=== PATIENT | female | born 1965 | race Caucasian/White ===

== ENCOUNTER 2020-03-19 06:53 | Outpatient (NON) | payer BC, SELFPAY ==
[2020-03-19 16:42] LABS: SARS-CoV-2 RNA PCR Negative
== END 2020-03-19 06:54 ==
PROVIDERS: PCP Nurse Practitioner Adult Health; Visit Provider Nurse Practitioner Adult Health
DX: R05 Cough (principal); Z20.828 Contact with and (suspected) exposure to other viral communicable diseases
CPT/HCPCS: 87635; C9803; U0003

== ENCOUNTER 2020-04-11 11:54 | Outpatient (NON) | payer BC, SELFPAY ==
[2020-04-11 22:32] LABS: SARS-CoV-2 RNA PCR Negative
== END 2020-04-11 11:55 ==
LOC: ANHCOVIDDT 11:55
PROVIDERS: PCP Nurse Practitioner Adult Health; Visit Provider Nurse Practitioner Adult Health
DX: Z20.828 Contact with and (suspected) exposure to other viral communicable diseases (principal); R05 Cough
CPT/HCPCS: 87635; C9803; U0003

== ENCOUNTER → 2020-08-24 06:53 | Outpatient (CLI) | payer BC, SELFPAY ==
[2020-08-24 19:12] LABS: SARS-CoV-2 RNA PCR Negative
== END ==
PROVIDERS: PCP Nurse Practitioner Adult Health; Visit Provider Nurse Practitioner Adult Health
DX: Z20.822 Contact with and (suspected) exposure to COVID-19 (principal); R09.81 Nasal congestion
CPT/HCPCS: C9803; U0003; U0005

== ENCOUNTER 2020-12-03 08:53 | Outpatient (CLI) | payer BC, SELFPAY | END 2020-12-03 08:54 | disposition home or self-care (01) | LOC: ANHAUDIO 08:57 | PROVIDERS: PCP Nurse Practitioner Adult Health; Visit Provider Nurse Practitioner Adult Health | DX: H90.6 Mixed conductive and sensorineural hearing loss, bilateral (principal) | CPT/HCPCS: 92557; 92567 ==

== ENCOUNTER 2020-12-03 09:01 | Outpatient (RCR) | payer BC, SELFPAY | END 2020-12-03 23:59 | disposition home or self-care (01) | LOC: ANHAUDIO 09:01 | PROVIDERS: PCP Nurse Practitioner Adult Health; Visit Provider Nurse Practitioner Adult Health | DX: Z46.1 Encounter for fitting and adjustment of hearing aid (principal) | CPT/HCPCS: 99199 ==

== ENCOUNTER 2021-02-26 09:00 | Outpatient (RCR) | payer BC, SELFPAY ==
--- NOTE | 2021-01-17 09:40 | PTOPEVAL ---
INITIAL PHYSICAL THERAPY EVALUATION and PLAN OF CARE Thank you for referring Savanah Walker to [facility].? Savanah is scheduled to be seen for physical therapy? 1x/week for 6 weeks. Please review, sign, date and return this plan of care RAY. I agree with and certify that the following plan of care is medically necessary. Referring Physician Date Admitting Provider: Attending Provider: Lenin Porter NP Referring Provider: *PT Outpatient Evaluation Start: 01/17/21 08:18 Freq: Status: Active Protocol: Document 01/17/21 08:10 RAMILA (Rec: 01/17/21 09:38 RAMILA [id number]) Therapy Assessment Status Assessment Status Assessment Status Evaluation Outpatient Past Medical History Past Medical History Source of Past Medical History Patient Neurological History Hx Other Neurological Disorders Yes: neuropathy Cardiovascular History Hx Hypercholesterolemia Yes Hx Hypertension Yes Respiratory History Hx Sleep Apnea Yes: to obtain CPAP machine Hx Other Respiratory Disorders Yes: 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 Gastrointestinal History Hx Cholecystectomy Yes: 2020 Hx Gastroesophageal Reflux Disease Yes Hx Other Gastrointestinal Disorders Yes: liver stent following ron-stent has been removed, cyst draining where gall Genitourinary History Hx Other Genitourinary Disorders Yes: urinary incontinence Musculoskeletal History Hx Arthritis Yes Hx Degenerative Disk Disease Yes: bulging discs Endocrine History Hx Diabetes Yes HEENT History Hx Meniere's Syndrome Yes Hx Other HEENT Disorders Yes: hearing loss, vertigo Reproductive History Hx Post Menopausal Yes Psychosocial History Hx Anxiety Yes Hx Depression Yes Pain History Has Past Pain Affected Your Daily Life Yes Evaluation Information Problem Diagnosis increased frequency of urination Onset 2003 - worsening since then Subjective Information Savanah reports that in 2003 she Query Text:As Reported By Patient/ purchased a trampoline for Family her children - would go on it - would have some urinary leakage. Since then the urinary leakage has worsened - within last 8 months began to wake up with urinary leakage that she wasn't aware of. Also has had increase in diarrhea x 7 years - has had diagnostic work up - unable to
--- NOTE | 2021-02-26 09:48 | PTOPEVAL ---
PHYSICAL THERAPY DISCHARGE SUMMARY Thank you for referring Savanah Walker to [facility] [place]Note 2[place]? Savanah has been seen x 6 visits in PT. She has met most goals set. She is to continue with her HEP for continual strengthening of her pelvic floor musculature. I agree with Savanah's discharge from PT. Referring Physician Date Admitting Provider: Attending Provider: Lenin Porter NP Referring Provider: Therapy Assessment Status Assessment Status Assessment Status Discharge Evaluation Information Problem Diagnosis increased frequency of urination Subjective Information Savanah reports that she doesn't Query Text:As Reported By Patient/ leak at night and that she is Family only getting up 1x/night for urination. Using 30% less with pads. She reports being able to perform urge strategies effectively. She will still have some leakage with cough and/or sneeze. Pain Assessment Timing of Pain Assessment Timing of Pain Assessment Assessment Self Report Self Report Pain Level 0 Pelvic Health Evaluation Pelvic Floor Assessment Sustained Levator Ani Strength 3+/5 able to perform 10 ct hold Quick Levator Ani Contraction in 15 10 Seconds Pelvic Health Therapy Pelvic Health Exercise Isolated Levator Ani Contraction sitting - 10 ct hold/10 ct Query Text:Position, Hold/Relaxation relax - 5 reps Time, Repetitions Quick Contractions sit - 10 in 15 sec, stand 10 Query Text:Position, Repetitions in 15 sec Therapeutic Ball no [place] islander ball today due to Query Text:Movement Direction, vertigo Repetitions Elevator Techniques sitting-4steps up 5 ct hold, 3 Query Text:Repetitions, Number of steps down, variable 5 reps Steps Going Up, Number of Steps Going ea Down Resistive 'Shh' Technique slow, soft x 5 reps, quick, Query Text:Quick, Hard, Long, Soft, hard x 5 reps Number of Repetitions Exercise Limitations Muscle Weakness Response to Exercise Increased Strength Endurance Good Exercise Comments upgraded to resistive exercises Rehab Teaching Rehab Teaching Teaching Topic Rehab Teaching Topic Components Exercise,Home Program As Pertains To Technique Recipient Patient Learning Preferences Audio,Demonstration,Discussion ,One-on-One Instruction,Visual ,Written Barriers to Learning None Readiness to Learn
== END 2021-02-26 15:41 | disposition home or self-care (01) ==
LOC: ANHPT 09:00
PROVIDERS: PCP Nurse Practitioner Adult Health
DX: R35.0 Frequency of micturition (principal)
CPT/HCPCS: 97110; 97162

== ENCOUNTER 2021-03-08 09:13 | Outpatient (RCR) | payer BC, SELFPAY | END 2021-03-08 23:59 | disposition home or self-care (01) | LOC: ANHAUDIO 09:13 | PROVIDERS: PCP Nurse Practitioner Adult Health; Visit Provider Nurse Practitioner Adult Health | DX: Z46.1 Encounter for fitting and adjustment of hearing aid (principal) | CPT/HCPCS: V5160; V5261; V5264 ==

== ENCOUNTER 2021-09-18 08:10 | Outpatient (RCR) | payer BC, SELFPAY | END 2021-09-18 23:59 | disposition home or self-care (01) | LOC: ANHAUDIO 08:10 | PROVIDERS: PCP Nurse Practitioner Adult Health; Referring Provider Nurse Practitioner Adult Health; Visit Provider Nurse Practitioner Adult Health | DX: Z46.1 Encounter for fitting and adjustment of hearing aid (principal) | CPT/HCPCS: 99199 ==

== ENCOUNTER 2022-10-20 07:30 | Outpatient (RCR) | payer BC, SELFPAY | END 2022-10-20 23:59 | disposition home or self-care (01) | LOC: ANHAUDIO 07:30 | PROVIDERS: PCP Nurse Practitioner Adult Health; Visit Provider Nurse Practitioner Adult Health | DX: Z46.1 Encounter for fitting and adjustment of hearing aid (principal) | CPT/HCPCS: 99199; V5264 ==

== ENCOUNTER 2023-10-15 13:00 | Outpatient (RCR) | payer BC, SELFPAY | END 2023-10-15 23:59 | disposition home or self-care (01) | LOC: ANHAUDIO 13:00 | PROVIDERS: PCP Nurse Practitioner Adult Health; Visit Provider Nurse Practitioner Family | DX: Z46.1 Encounter for fitting and adjustment of hearing aid (principal) | CPT/HCPCS: 92593; 99199 ==

== ENCOUNTER 2024-07-07 14:00 | Outpatient (RCR) | payer BC, SELFPAY | END 2024-07-07 23:59 | disposition home or self-care (01) | LOC: ANHAUDIO 14:00 | PROVIDERS: PCP Nurse Practitioner Adult Health; Visit Provider Nurse Practitioner Adult Health | DX: Z47.1 Aftercare following joint replacement surgery (principal) | CPT/HCPCS: 99199; V5264 ==

== ENCOUNTER 2024-09-08 12:53 | Outpatient (CLI) | payer BC, SELFPAY ==
--- NOTE | ~2024-09-08 | XR_ITS ---
Lumbosacral Spine: AP and lateral views Clinical History: Pain Findings: The normal lordotic curve is maintained. The vertebral bodies and posterior elements are i ntact. There is mild to moderate degenerative disc change throughout the lumbar spine. There is moder ate to advanced facet arthropathy, especially from L3 through S1. The sacroiliac joints are normally outlined. Impression: Moderate to advanced degenerative spondylosis, as above. Reviewed, dictated and finalized at location M. Impression: Moderate to advanced degenerative spondylosis, as above.
--- OUTSIDE RECORDS SUMMARY | 2024-09-08 12:59 | XMS_ITS | Clinical Summary ---
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
--- OUTSIDE RECORDS SUMMARY | 2024-09-08 12:59 | XMS_ITS | Encounter Summary ---
Author Organization [facility] Address [address] [place] [address] Care Team Providers Care Exchange Architect Name Role Phone Lorenza Thornton NP Primary Care Provider [phone] Palak Garber Primary Care Provider [phone] Encounter Details Date Type Department Care Team (Late st Contact Info) Description 10/31/2019 Hospital Follow-up Call [facility] [place] [address] Tessy Newsome RN Social History Tobacco Use Types Packs/Day Years Used Date Smoking Tobacco: Every Day Cigarettes 1.5 15 Smokeless Tobacco: Current Alcohol Use Standard Drinks/Week Comments Not Currently 0 (1 standard drink = 0.6 oz pur e alcohol) Humiliation, Afraid, Rape, and Kick questionnair e Answer Date Recorded Within the last year, have y ou been afraid of your partner or ex-partner? No 10/24/2019 Within the last year, have y ou been humiliated or emotionally abused in other ways by your partner or ex-partner? No Within the last year, have y ou been kicked, hit, slapped, or otherwise physically hurt by your partner or ex-partner? No 10/24/2019 Within the last year, have y ou been raped or forced to have any kind of sexual activity by your partner or ex-partner? No 10/24/2019 Social Connection and Isolat ion Panel [NHANES] Answer Date Recorded In a typical week, how many times do you talk on the phone with family, friends, or neighbors? More than three times a week 10/24/2019 How often do you get togethe r with friends or relatives? Once a week 10/24/2019 How often do you attend chur ch or moravian services? Never 10/24/2019 Do you belong to any clubs o r organizations such as presybeterian groups, unions, fraternal or athletic groups, or school groups? No 10/24/2019 How often do you attend meet ings of the clubs or organizations you belong to? Never 10/24/2019 Are you , , di vorced, , never , or living with a partner? 10/24/2019 Overall Financial Resource Strain (CARDIA) Answe r Date Recorded How hard is it for you to pa y for the very basics like food, housing, medical care, and heating? Not hard at all 10/24/2019 [facility] - Occupational Stress Questionnaire Answer Date Recorded Do you feel stress - tense, restless, nervous, or anxious, or unable to sleep at night because your mind is troubled all the time - these days? Rather much 10/24/2019 Exercise Vital Sign Answer Date Recorde d On average, how many days pe r week do you engage in moderate to strenuous exercise (like a brisk walk)? 0 days 10/24/2019 On average, how many minutes do you engage in exercise at this level? 0 min 10/24/2019 Hunger Vital Sign Answer Date Recorded Within the past 12 months, y ou worried that your food would run out before you got the money to buy more. Never true 10/24/19 20 Within the past 12 months, t he food you bought just didn't last and you didn't have money to get more. Never true 10/24/2019 PRAPARE - Transportation Answer Date Re corded In the past 12 months, has l ack of transportation kept you from medical appointments or from getting medications? No 09/26 In the past 12 months, has l ack of transportation kept you from meetings, work, or from getting things needed for daily living? No 10/24/2019 Comments No Sex and Gender Information Value Date Recorded Sex Assigned at Not on file Legal Sex Female 7:36 PM CDT Gender Identity Not on file Sexual Orientation Not on file COVID-19 Exposure Response Date Recorded In the last month, have you been in contact with someone who was confirmed or suspected to have Coronavirus / COVID-19? No / Unsure 11/03/2019 10:51 AM CDT documented as of this encounter Functional Status * Question Answer Date of Assessment Author Status Do you have serious difficulty walking or climbing stairs? No 11/03/2019 6:40 PM CDT Hiro Aleman RN Ac tive * Question Answer Date of Assessment Author Status Do you have difficulty dressing or bathing? No 11/03/2019 6:40 PM CDT Hiro Aleman R N Active Because of a physical, mental, or emotional condition, do you have difficulty doing errands alone such as visiting a doctor's office or shopping? No 11/03/2019 6:40 PM CDT Hiro Aleman RN [facility] * RETIRED Are you deaf or do you have serious difficulty hearing Answer Date of Assessment Author Status Yes 10/24/2019 9:55 PM CDT Activ e * RETIRED Are you blind or do you have serious difficulty seeing, even when wearing glasses? Answer Date of Assessment Author Status No 10/24/2019 9:55 PM CDT Activ e * Do you have serious difficulty walking or climbing stairs? Answer Date of Assessment Author Status No 10/24/2019 9:55 PM CDT Saritha Freed RN Active * Do you have difficulty dressing or bathing? Answer Date of Assessment Author Status No 10/24/2019 9:55 PM CDT Saritha Freed RN Active * Because of a physical, mental, or emotional condition, do you have difficulty doing errands alone such as visiting a doctor's office or shopping? Answer Date of Assessment Author Status No 10/24/2019 9:55 PM DERREKT Saritha Freed RN Active documented as of this encounter Mental Status * Question Answer Entry Date Author Status Because of a physical, mental, or emotional condition, do you have serious difficulty concentrating, remembering, or making decisions? No 11/03/2019 6:40 PM CDT Hiro Aleman R N Active * Because of a physical, mental, or emotional condition, do you have serious difficulty concentrating, remembering, or making decisions? Answer Entry Date Author Status No 10/24/2019 9:55 PM CDT Saritha Freed RN Active documented in this encounter Plan of Treatment Not on file documented as of this encounter Visit Diagnoses Not on filedocumented in this encounter Additional Health Concerns Infection Onset Date Last Indicated Resolved Time COVID-19 Rule Out 09/03/2020 09/03/2020 09/04/2020 3:23 PM CDT documented as of this encounter Care Teams Exchange Architect Relationship Specialty [place] [address] [place] [id number] PCP - General NURSE PRACTITIONER 10/25/19 08/23/22 Palak Garber PA [address] [place] [address] PCP - General PHYSICIAN ELECTRIC SWITCH REPAIRER 08/24/22 documented as of this encounter
--- OUTSIDE RECORDS SUMMARY | 2024-09-08 13:00 | XMS_ITS | Clinical Summary ---
Author Organization [facility] Address [address] [place] [address] Phone Care Team Providers Care Academic Records Specialist Name Role Phone Lorenza Thornton APRN Primary Care Provider [phone] Lenin Porter APRN, LABELING STRATEGIST Unavailable [phone] Allergies No known active allergies Medications traMADol (ULTRAM) 50 MG Tablet TAKE 2 TABLETS BY MOUTH IN THE MORNING AND 2 TABLETS IN THE EVENING 0 11/19/19 19 Active clonazePAM (KLONOPIN) 1 MG Tablet Take 1 mg by mouth 3 times daily. 2 11/09/19 19 Active guanFACINE (TENEX) 2 MG Tablet TAKE 2 TABLETS BY MOUTH ONCE DAILY 1 10/21/19 19 Active meclizine (ANTIVERT) 12.5 MG Tablet Take 12.5 mg by mouth daily. 2 tabs a day per pt's list Active omeprazole (PRILOSEC) 20 MG CAPSULE DELAYED RELEASE TAKE 1 CAPSULE BY MOUTH ONCE DAILY 3 11/09/19 19 Active Meloxicam 15 MG Tablet meloxicam 15 mg tablet TAKE 1 TABLET BY MOUTH ONCE DAILY 05/26/19 14 Active DULoxetine (CYMBALTA) [address] Particles TAKE 1 CAPSULE BY MOUTH ONCE DAILY 0 11/01/19 19 Active chlorthalidone (HYGROTON) 25 MG Tablet chlorthalidone 25 mg tablet TAKE 1 TABLET BY MOUTH ONCE DAILY 04/15/20 13 Active enalapril (VASOTEC) 10 MG Tablet enalapril maleate 10 mg tablet TAKE 1 TABLET BY MOUTH ONCE DAILY Active atorvastatin (LIPITOR) 40 MG Tablet TAKE 1 TABLET BY MOUTH ONCE DAILY 0 11/01/19 19 Active docusate sodium (DOK) 100 MG Capsule DOK 100 mg capsule TAKE 1 CAPSULE BY MOUTH TWICE DAILY Active traZODone (DESYREL) 150 MG Tablet Take 150 mg by mouth nightly. 2 tabs at hs per pt's paperwork Active metFORMIN (GLUCOPHAGE) 500 MG Tablet Take 500 mg by mouth 2 times daily. 1 tab in AM and 1 tab in PM per pt's list 3 10/27/19 19 Active methocarbamol (ROBAXIN) 750 MG Tablet Take 750 mg by mouth 4 times daily. 1 tab qid per pt's list Active ciprofloxacin-d examethasone (CIPRODEX) 0.3-0.1 % Suspension Place 4 Drops in affected ear(s) as needed. Active budesonide-form oterol fumarate (SYMBICORT) 160-4.5 MCG/ACT Aerosol Symbicort 160 mcg-4.5 mcg/actuation HFA aerosol inhaler INHALE 2 PUFFS BY MOUTH TWICE DAILY Active albuterol (PROAIR HFA) 108 (90 Base) MCG/ACT Aerosol Solution take 2 Puffs by inhalation every 4 hours as needed. Active Ascorbic Acid (VITAMIN C) 1000 MG Tablet Take by mouth. Active L-Lysine 1000 MG Tablet Take 1 Tab by mouth daily. Active Multiple Vitamins-Minera ls (MULTIVITAMIN PO) Take by mouth. Activ e PSYLLIUM HUSK PO Take 500 mg by mouth daily. Active ferrous sulfate 325 (65 Fe) MG TabletIndicatio ns:Iron deficiency Take 1 Tab by mouth daily. 30 Tab 3 12/15/19 19 Active Additional Information Patient not taking.Reported on 01/12/2019 raNITIdine (ZANTAC) 150 MG TabletIndicatio ns:Belching symptom Take 1 Tab by mouth 2 times daily. 180 Tab 01/13/20 19 Active Ascorbic Acid 100 MG Tablet Take 100 mg by mouth daily. Active atorvastatin (LIPITOR) 40 MG Tablet Take 40 mg by mouth. 10/15/19 20 Active Dapagliflozin Propanediol (Farxiga) 5 MG Tablet Farxiga 5 mg tablet Take 1 tablet every day by oral route. Active clonazePAM (KlonoPIN) 1 MG Tablet Take 1 mg by mouth. 10/28/19 20 Active diazePAM (VALIUM) 5 MG Tablet diazepam 5 mg tablet Active DULoxetine (CYMBALTA) [address] Particles Take 60 mg by mouth. 10/17/19 Active gabapentin (NEURONTIN) 300 MG Capsule gabapentin 300 mg capsule Active enalapril (VASOTEC) 10 MG Tablet Take 10 mg by mouth daily. 08/25/19 Active empagliflozin (Jardiance) 25 MG Tablet Take 25 mg by mouth daily. 09/03/19 Active metFORMIN (GLUCOPHAGE) 500 MG Tablet metformin 500 mg tablet Active multi-vitamins (Multi-Vitamin) Tablet Take 1 Tablet by mouth. Active omeprazole (PriLOSEC) 40 MG CAPSULE DELAYED RELEASE Take 40 mg by mouth. Active naloxone HCl (Narcan) 4 MG/0.1ML Liquid Narcan 4 mg/actuation nasal spray Active budesonide (ENTOCORT EC) [address] Particles Take 6 mg by mouth every morning. Active glimepiride (AMARYL) 2 MG Tablet Take 2 mg by mouth every morning. Active Vibegron (Gemtesa) 75 MG TabletIndicatio ns:Urinary frequency,Urina ry incontinence, urge,Urinary urgency Take 75 mg by mouth daily. 90 Tablet 3 06/21/19 Active Active Problems Problem Noted Date Diagnosed Date Iron deficiency 12/16/2018 Current smoker 11/22/2018 Chronic mastoiditis of left side 11/22/2018 Bandemia 11/22/2018 Chronic diarrhea 11/22/2018 Encounters Date Type Department Care Team Description 06/21/2024 2:15 PM SECONDARY SCHOOL TEACHER Office Visit [facility] [address] [place] [address] Lenin Porter, ELIZABETH, LABELING STRATEGIST Urinary frequency (Primary Dx); Urinary incontinence, urge; Urinary urgency Discharge Disposition: Discharged to home or Selfcare 06/19/2024 Travel from Last 3 Months Immunizations Immunization Administration Dates Next Due TDAP Vaccine 10/19/2017,04/27/2009 Td, Unspecified Formulation 01/28/2009 Family History Medical History Relation Name Comments Diabetes Father Hypertension Father Cancer Maternal Grandfather ? Cancer Maternal Grandmother ? Hypertension Mother Cancer Paternal Grandmother breast, something on stomach Relation Name Status Comments Father Alive Maternal Grandfather Maternal Grandmother Mother Alive Paternal Grandmother Social History Tobacco Use Types Packs/Day Years Used Date Smoking Tobacco: Every Day Cigarettes 0.5 35.8 Started: 11/22/1988 Smokeless Tobacco: Never Tobacco Cessation:Ready to Q uit: Not Asked; Counseling Given: Not Answered Alcohol Use Standard Drinks/Week Comments Never 0 (1 standard drink = 0.6 oz pure alcohol) has been years since she had a drink AUDIT-C Answer Date Recorded Frequency of Alcohol Consumption Never 11/22/2018 Average Number of Drinks Not on file 019 Frequency of Binge Drinking Not on file 10/26 Sexually Active Control Partners Comments Not Currently Comments No Sex and Gender Information Value Date Recorded Sex Assigned at Not on file Legal Sex Female 10:24 AM CDT Gender Identity Not on file Sexual Orientation Not on file Last Filed Vital Signs Vital Sign Reading Time Taken Comments Blood Pressure 151/96 06/21/2024 1:57 PM SECONDARY SCHOOL TEACHER Pulse 92 06/21/2024 1:57 PM SECONDARY SCHOOL TEACHER Temperature 36 C (96.8 F) 01/12/2019 12:24 PM CDT Respiratory Rate 18 06/21/2024 1:57 PM SECONDARY SCHOOL TEACHER Oxygen Saturation 96% 06/21/2024 1:57 PM SECONDARY SCHOOL TEACHER Inhaled Oxygen Concentration - - Weight 89.4 kg (197 lb) 06/21/2024 1:57 PM SECONDARY SCHOOL TEACHER Height 170.2 cm (5' 7 ) 06/21/2024 1:57 PM SECONDARY SCHOOL TEACHER Body Mass Index 30.85 06/21/2024 1:57 PM SECONDARY SCHOOL TEACHER Plan of Treatment Upcoming Encounters Date Type Department Care Team (Late st Contact Info) Description 06/27/2025 10:00 AM SECONDARY SCHOOL TEACHER Office Visit [facility] [address] [place] [phone] Lenin Porter, DIRECTOR SALES, LABELING STRATEGIST [address] [place] [address] Health Maintenance Due Date Last Done Comments Hepatitis C Virus (HCV) Screening 1965 Hepatitis B Immunization (1 of 3 - 19+ 3-dose series) 1984 Pneumococcal Immunization (50+ years) (1 of 2 - PCV) 1984 Pap Smear 1986 Cervical Cancer Screening (CCS) 08/25/1995 HPV/Cotest 08/25/1995 Mammogram 04/25/2014 04/25/2013 Cologuard 08/25/2015 Immunochemical Fecal Occult Blood 08/25/2015 Zoster Immunization (1 of 2) 08/25/2015 Influenza Immunization (#1) 2023 SARS-COV-2 Immunization ( season) 2023 09/10/2020, 08/20/2020 Td Immunization Every 10 Years (Adults With 1 Tdap) 10/20/2027 10/19/2017, 04/27/2009, 01/28/2009 Colonoscopy 09/03/2028 09/04/2023, 08/25, 07/17/2023, Additional history exists Colorectal Cancer Screening 09/03/2028 Respiratory Syncytial Virus (RSV) Immunization (Adult) (1 - 1-dose 75+ series) 2040 09/04/2023, 08/25, 07/17/2023, Additional history exists DTaP/Tdap/Td Immunization Discontinued 2017, 04/27/2009, 01/28/2009 TdaP Immunization Discontinued 10/19/2017, 04/27/2009 Meningococcal Immunization (ACWY) Aged Out No longer eligible based on patient's age to complete this topic Rotavirus Immunization Aged Out No lo nger eligible based on patient's age to complete this topic Procedures Procedure Name Priority Date/Time Associated Diagnosis Comments REAGAN,POST-VOID RES,US,NON-IMAGING Routine 06/21/2024 2:15 PM SECONDARY SCHOOL TEACHER Urinary frequency Urinary incontinence, urge POCT UA AUTOMATED W/O MICRO Routine 06/21/2024 2:05 PM SECONDARY SCHOOL TEACHER Urinary frequency Urinary incontinence, urge from Last 3 Months Results * REAGAN,POST-VOID RES,US,NON-IMAGING (06/21/2024 2:15 PM SECONDARY SCHOOL TEACHER) Narrative Ruth Otero - 06/21/2024 2:15 PM SECONDARY SCHOOL TEACHER Ruth Otero 06/21/2024 2:17 PM POCT Bladder Scan collected per standing order of James Porter on 06/21/2024 PVR= 0 ML us Lenin Porter APRN, CNP [place] - SURGERY Final Result * (ABNORMAL) POCT UA AUTOMATED W/O MICRO (06/21/2024 2:05 PM SECONDARY SCHOOL TEACHER) POC UA SPECIFIC GRAVITY 1.010 URINE PH 6.0 5.0 - 9.0 POC URINE LEUKOCYTES Negative Negative Joanne/uL POC URINE NITRITE Negative Negative POC URINE PROTEIN Negative Negative mg/dL POC URINE GLUCOSE >1000 mg/dL(A) Negative, Norm mg/dL POC URINE KETONE Negative Negative mg/dL POC URINE UROBILINOGEN Norm Norm, 0.2 E.U./dL (mg/dL), 1 E.U./dL (mg/dL) POC URINE BILIRUBIN Negative Negative mg/dL POC URINE BLOOD INSTRUMENT Negative Negative Ulcio/uL POC URINE COLOR Yellow POC URINE CLARITY Clear Urine 06/21/2024 2:05 PM SECONDARY SCHOOL TEACHER Lenin Porter APRN, CNP POINT OF CARE TESTING (MANUAL) Final Result from Last 3 Months Insurance [place]ID [place] [id number] Care Teams Academic Records Specialist Relationship Specialty Start Date End Date Lorenza Thornton APRN PCP - General Advanced Practice Nurse 11/18/18 Lenin Porter APRN, CNP [address] [place] [address] Nurse Practitioner Advanced Practice Nurse 02/16/23
--- OUTSIDE RECORDS SUMMARY | 2024-09-08 13:00 | XMS_ITS | Encounter Summary ---
Author Organization [facility] Address [address] [place] [id number] Care Team Providers Care Presser Automatic Name Role Phone Lorenza Thornton NP Primary Care Provider [phone] Palak Garber Primary Care Provider [phone] Encounter Details Date Type Department Care Team (Late st Contact Info) Description 11/09/2019 Hospital Follow-up Call [facility] Telemetry Unit [address] [place] [address] Alida Harper, RN Social History Tobacco Use Types Packs/Day [...] often do you attend chur ch or rastafarian services? Never 10/24/2019 Do you belong to any clubs o r organizations such as holiness groups, unions, fraternal or athletic groups, or [...] and heating? Not hard at all 10/24/2019 [facility] [place] of Occupat ional Health - Occupational Stress [...] as of this encounter Functional Status * RETIRED Are you deaf or do you have serious difficulty hearing Answer Date of Assessment Author Status No 11/03/2019 6:40 PM CDT Activ e * RETIRED Are you blind or do you have serious difficulty seeing, even when wearing glasses? Answer Date of Assessment Author Status No 11/03/2019 6:40 PM CDT Activ e * Do you have serious difficulty walking or climbing stairs? Answer Date of Assessment Author Status No 11/03/2019 6:40 PM CDT Hiro Aleman RN Active * Do you have difficulty dressing or bathing? Answer Date of Assessment Author Status No 11/03/2019 6:40 PM CDT Hiro Aleman RN Active * Because of a physical, mental, or emotional condition, do you have difficulty doing errands alone such as visiting a doctor's office or shopping? Answer Date of Assessment Author Status No 11/03/2019 6:40 PM CDT Hiro Aleman RN Active documented as of this encounter Mental Status * Because of a physical, mental, or emotional condition, do you have serious difficulty concentrating, remembering, or making decisions? Answer Entry Date Author Status No 11/03/2019 6:40 PM CDT Hiro Aleman RN Active documented in this encounter Plan of Treatment Not on file documented as of this encounter Visit Diagnoses Not on filedocumented in this encounter Additional Health Concerns Infection Onset Date Last Indicated Resolved Time COVID-19 Rule Out 09/03/2020 09/03/2020 09/04/2020 3:23 PM CDT documented as of this encounter Care Teams Presser Automatic Relationship Specialty Start Date End Date Lorenza Thornton NP [address] [place] [id number] PCP - General NURSE PRACTITIONER 10/25/19 08/23/22 Palak Garber PA [address] [place] [address] [place] [address] PCP - General PHYSICIAN GARAGE HAND 08/24/22 documented as of this encounter
--- OUTSIDE RECORDS SUMMARY | 2024-09-08 13:00 | XMS_ITS | Clinical Summary ---
Author Organization [facility] Address [facility] [place] [address] Care Team Providers Care Local Truck Driver Name Role Phone Palak Garber Primary Care Provider [phone] Allergies No known active allergies Medications albuterol sulfate HFA 108 (90 Base) MCG/ACT inhaler Inhale 2 puffs into the lungs every 4 (four) hours as needed for Shortness of breath. 0 Active SYMBICORT 160-4.5 MCG/ACT inhaler Inhale 2 puffs into the lungs 2 (two) times a day. 0 Active traZODone 150 MG tablet Take 150 mg by mouth nightly at bedtime. 0 Active atorvastatin 40 MG tablet Take 40 mg by mouth nightly at bedtime. 0 Active Ascorbic Acid (VITAMIN C) 100 MG tablet Take 100 mg by mouth daily. Active multi vitamin/mineral s tablet Take 1 tablet by mouth daily. Active clonazePAM 1 MG tablet Take 1 tablet (1 mg total) by mouth 3 (three) times daily as needed (Anxiety). 90 tablet 0 Active DULoxetine 60 MG capsule Take 1 capsule (60 mg total) by mouth daily. 30 capsule 1 0 Active omeprazole 20 MG capsule Take 20 mg by mouth daily. 1 Active enalapril 10 MG tablet Take 10 mg by mouth daily. 1 Active JARDIANCE 25 MG tablet Take 25 mg by mouth daily. 1 Active traMADol 50 MG tablet Take 50 mg by mouth 3 (three) times daily as needed. FOR PAIN 1 Active diphenoxylate-a tropine (LOMOTIL) 2.5-0.025 MG tabletIndicatio ns:Diarrhea Take 1 tablet by mouth 4 (four) times daily as needed for Diarrhea. 12 tablet 3 Active HYDROcodone-dyan taminophen (NORCO) 5-325 MG tabletIndicatio ns:Acute Pain < 3 Day Supply Take 1 tablet by mouth every 6 (six) hours as needed. Indications: Acute Pain < 3 Day Supply 10 tablet 3 Active hyoscyamine (LEVSIN) 0.125 MG tablet Take 1 tablet (0.125 mg total) by mouth every 6 (six) hours as needed for Cramping. 20 tablet 3 Active Active Problems Problem Noted Date Diagnosed Date Shortness of breath 09/03/2020 Abdominal pain 10/24/2019 History of cholecystectomy 10/24/2019 Iron deficiency 12/16/2018 Bandemia 11/22/2018 Chronic diarrhea 11/22/2018 Chronic mastoiditis of left side 11/22/2018 Current smoker 11/22/2018 Migraine equivalent 08/30/2018 Chronic otitis externa of both ears 10/25/2012 HTN (hypertension) 10/25/2012 Meniere's disease 10/25/2012 Superior semicircular canal dehiscence 3 Cold sore 05/05/2011 Anxiety 02/05/2011 Cervical pain (neck) 02/05/2011 Overview (10/24/2019): dx - cervical neck is straight Hot flashes 02/05/2011 Overview (10/24/2019): pt is on medication and it is helping Hyperlipidemia 02/05/2011 Resolved Problems Problem Noted Date Diagnosed Date Resolved Date Intra-abdominal abscess ([facility]) 11/03/2019 11/08/2019 Family History Medical History Relation Comments Heart Disease Father Heart Attack Mother Stroke Mother Relation Status Comments Father Mother Social History Tobacco Use Types Packs/Day Years Used Date Smoking Tobacco: Former Cigarettes 0.5 15 Passive Smoke Exposure: Never Smokeless Tobacco: Never Tobacco Cessation:Counseling Given: Not Answered Alcohol Use Standard Drinks/Week Comments Not Currently [...] often do you attend chur ch or confucianist services? Never 10/24/2019 Do you belong to any clubs o r organizations such as evangelical groups, unions, fraternal or athletic groups, or [...] and heating? Not hard at all 10/24/2019 [facility] [place] of Occupat ional Health - Occupational Stress [...] Sign Reading Time Taken Comments Blood Pressure 118/81 2022 4:39 PM CDT Pulse 72 2022 4:39 PM CDT Temperature 36.6 C (97.9 F) 2022 1:36 PM CDT Respiratory Rate 16 2022 4:39 PM CDT Oxygen Saturation 98% 2022 4:39 PM CDT Inhaled Oxygen Concentration - - Weight 88.3 kg (194 lb 10.7 oz) 2022 1:36 PM CDT Height 170.2 cm (5' 7 ) 2022 1:36 PM CDT Body Mass Index 30.49 2022 1:36 PM CDT Plan of Treatment Health Maintenance Due Date Last Done Comments Cervical Cancer Screening Pa p Smear (Age 30 to 64) Every 3 Years 1965 Colorectal Cancer Screening Colonoscopy (10 Years) 1965 Annual Physical 1968 Hepatitis C 08/25/1983 Hepatitis B Vaccines (1 of 3 - 19+ 3-dose series) 1984 Cervical Cancer Screening Pa p with HPV Testing (Age 30 to 64) Every 5 Years 08/25/1995 Cervical Cancer Screening wi th HPV 08/25/1995 Mammogram Screening 2005 Pneumococcal Vaccine: 50+ Years (1 of 1 - PCV) 08/25/2015 Zoster Vaccines (1 of 2) 08/25/2015 COVID-19 Vaccine (3 - 2023-2 5 season) 2023 09/10/2020, 08/20/2020 DTaP, Tdap and Td Vaccines ( 3 - Td or Tdap) 10/20/2027 10/19/2017, 04/27/2009, 01/28/2009 Meningococcal B Vaccine Aged Out No l onger eligible based on patient's age to complete this topic Meningococcal Vaccine Aged Out No italo elroy eligible based on patient's age to complete this topic RSV Immunizations Under 20 Months Aged Out No longer eligible b ased on patient's age to complete this topic Medical Devices Implanted Type Area Building Operator Device Identifier Shelf Expiration Date Model / Serial / Lot Advanix Biliary Implanted:Qty: 1 on 10/25/2019 by Adam Alexander MD at [facility] N/A: Bile Duct 05/09/2021 / REF [id number] / [id number] Insurance Advance Directives * Full Code (Latest Code Status on File) Date Activated Date Inactivated Comments 09/03/2020 3:26 PM 09/04/2020 2:11 PM * Full Code Date Activated Date Inactivated Comments 09/03/2020 2:53 PM 09/03/2020 3:26 PM * Full Code Date Activated Date Inactivated Comments 11/03/2019 5:51 PM 11/08/2019 2:20 PM * Full Code Date Activated Date Inactivated Comments 10/24/2019 8:42 PM 10/28/2019 5:06 PM Care Teams Local Truck Driver Relationship Specialty Start Date End Date Palak Garebr PA [address] [place] [id number] PCP - General PHYSICIAN TAPPER BALANCE WHEEL SCREW HOLE 08/24/22
--- OUTSIDE RECORDS SUMMARY | 2024-09-08 13:00 | XMS_ITS | Clinical Summary ---
Author Organization [facility] Address [address] [place] [address] Care Team Providers Care Apprentice Painter Neckties Name Role Phone Renard Hui MD Unavailable [phone] Conor Russo MD Unavailable [phone] Deana Garza RN Unavailable Unavailable Fela Gruber Primary Care Provider [phone] Source Comments [facility],non-owned Affiliates and Associated Physician Practices is amultiple site organization consisting of ambulatory clinics and hospital sitesin [place], [place], [place] and [place]. This disclosure is being madepursuant to the Care Everywhere program and may not contain all informatio navailable regarding this patient. Last updated 18.[facility] Allergies No known active allergies Medications * Be aware that medications may not be up to date on this document. Alwaysverify current medications with the patient. Multiple Vitamin (MULTI-VITAMIN) TABS Take 1 (one) tablet by mouth once daily Active clonazePAM (KLONOPIN) 0.5 MG tablet Take 2 (two) tablets by mouth 3 times daily Active ciprofloxacin-d examethasone (CIPRODEX) 0.3-0.1 % otic suspension 4 (four) drops 2 times daily Shake well before using. Active NEOMYCIN-POLYMY GATO-HC, OTIC, 1 % SOLN by Otic route. 4 drops in the right ear Active meclizine (ANTIVERT) 25 MG tabletIndicatio ns:BPPV (benign paroxysmal positional vertigo),Vertig o Take 1 Tab by mouth 3 times daily as needed for Dizziness. 30 Tab 0 06/09/19 13 Active traMADol (ULTRAM) 50 MG tabletIndicatio ns:Chronic neck pain Take 1-2 Tabs by mouth every 6 hours as needed. 120 Tab 0 04/11/20 13 Active albuterol HFA (VENTOLIN HFA) 108 (90 BASE) MCG/ACT inhaler Inhale 2 Puffs by mouth every 6 hours as needed. 1 Inhaler 5 05/05/19 15 Active budesonide-form oterol (SYMBICORT) 160-4.5 MCG/ACT inhaler Inhale 2 (two) puffs by mouth 2 times daily 10/04/19 20 Active DULoxetine (CYMBALTA) 60 MG capsule Take 1 (one) capsule by mouth once daily 10/17/19 20 Active enalapril (VASOTEC) 10 MG tablet once daily Active traZODone (DESYREL) 150 MG tablet Take 1 (one) tablet by mouth at bedtime 12/05/19 20 Active atorvastatin (LIPITOR) 40 MG tablet Take 1 (one) tablet by mouth at bedtime Active omeprazole (PriLOSEC) 20 MG capsule Take 1 (one) capsule by mouth daily before breakfast Active glimepiride (Amaryl) 2 MG tablet Take 1 (one) tablet by mouth daily with breakfast Active hyoscyamine (Levsin) 0.125 MG IR tablet Take 1 (one) tablet by mouth every 4 hours as needed for Spasms Active cyclobenzaprine (Flexeril) 10 MG tablet Take 1 (one) tablet by mouth 3 times daily as needed for Muscle Spasms Active Jardiance 25 MG tablet Take 1 (one) tablet by mouth once daily 02/09/20 23 Active Gemtesa 75 MG tablet Take 1 (one) tablet by mouth once daily 06/24/19 24 Active Trulicity 0.75 MG/0.5ML injection Inject 0.75 (three-quarters) mg subcutaneously every 7 days Active colestipol (Colestid) 1 GM tabletIndicatio ns:Diarrhea, unspecified type Take 1 (one) tablet by mouth once daily 90 tablet 12/07/19 24 Active ondansetron (Zofran) 4 MG tabletIndicatio ns:Nausea Take 1 (one) tablet by mouth every 6 hours as needed for Nausea/Vomiting 30 tablet 02/10/20 24 Active cholestyramine (Questran) 4 g packetIndicatio ns:Diarrhea, unspecified type Take 1 (one) packet by mouth once daily 60 Each 03/17/20 24 Active chlorthalidone (HYGROTON) 25 MG tabletIndicatio ns:HTN (hypertension) Take 1 Tab by mouth once daily. 90 Tab 0 04/15/20 13 020 Discontin ued(Exclu de AVS) Active Problems Problem Noted Date Diagnosed Date Abdominal bloating 02/11/2022 Irritable bowel syndrome with diarrhea 2 Abdominal pain 10/24/2019 Chronic diarrhea 11/22/2018 Migraine equivalent 08/30/2018 HTN (hypertension) 10/25/2012 Chronic otitis externa of both ears 10/25/2012 Superior semicircular canal dehiscence 3 Meniere's disease 10/25/2012 Cold sore 05/05/2011 Anxiety 02/05/2011 Cervical pain (neck) 02/05/2011 Overview (02/05/2011): dx - cervical neck is straight Hyperlipidemia 02/05/2011 Hot flashes 02/05/2011 Overview (02/05/2011): pt is on medication and it is helping Encounters Date Type Department Care Team Description 06/21/2024 8:00 AM CAMPUS SUPERVISOR Procedure visit [facility] - GI [address] [place] [address] Winston Marquis MD Nonalcoholic fatty liver disease 06/21/2024 Travel from Last 3 Months Immunizations Immunization Administration Dates Next Due TD VACCINE 01/28/2009 Family History Medical History Relation Name Comments Asthma Mother Heart Failure Mother Relation Name Status Comments Father Alive Mother Alive Social History Tobacco Use Types Packs/Day Years Used Date Smoking Tobacco: Former Cigarettes 0.5 25 1 7 - 2021 Passive Smoke Exposure: Never Smokeless Tobacco: Never Tobacco Cessation:Counseling Given: Not Answered Alcohol Use Standard Drinks/Week Comments No 0 (1 standard drink = 0.6 oz pur e alcohol) Comments No Sex and Gender Information Value Date Recorded Sex Assigned at Not on file Legal Sex Female 12:14 PM CAMPUS SUPERVISOR Gender Identity Not on file Sexual Orientation Not on file Last Filed Vital Signs Vital Sign Reading Time Taken Comments Blood Pressure 181/66 03/14/2024 9:23 AM CAMPUS SUPERVISOR Pulse 120 03/14/2024 9:23 AM CAMPUS SUPERVISOR Temperature 36.5 C (97.7 F) 09/07/2023 11:20 AM CDT Respiratory Rate 18 09/07/2023 11:20 AM CDT Oxygen Saturation 97% 03/14/2024 9:23 AM CAMPUS SUPERVISOR Inhaled Oxygen Concentration - - Weight 90.3 kg (199 lb) 03/14/2024 9:23 AM CAMPUS SUPERVISOR Height 170.2 cm (5' 7 ) 03/14/2024 9:23 AM CAMPUS SUPERVISOR Body Mass Index 31.17 03/14/2024 9:23 AM CAMPUS SUPERVISOR Plan of Treatment Health Maintenance Due Date Last Done Comments COLOGUARD (AGES 45-75) - COLON CA SCREENING 1965 CT COLONOGRAPHY - COLON CA SCREENING 1965 FIT - COLON CA SCREENING 1965 FLEX SIG - COLON CA SCREENING 1965 HIV SCREENING 1980 HEPATITIS C SCREENING 08/20/1983 HEPATITIS B VACCINE (1 of 3 - 19+ 3-dose series) 1984 PAP SMEAR 06/28/2013 06/28/2010, 06/28/2010 MAMMOGRAM 04/25/2015 04/25/2013, 11/08/2011, 05/31/2010, Additional history exists PNEUMOCOCCAL VACCINE 50+ (1 of 1 - PCV) 08/25/2015 ZOSTER VACCINE (1 of 2) 08/25/2015 DTAP/TDAP/TD VACCINES (2 - Td or Tdap) 01/28/2019 01/28/2009 COVID-19 VACCINE ( - season) 2023 09/10/2020, 08/20/2020 DEPRESSION SCREENING 04/27/2024 INFLUENZA VACCINE (Season Ended) 2024 SCREENING FOR DIABETES 09/03/2026 , 07/17/2023, 03/23/2023, Additional history exists COLON MONITORING 09/03/2033 09/04/2023, 01/2024, 07/17/2023, Additional history exists COLONOSCOPY - COLON CA SCREENING 09/03/2033 09/04/2023, 09/04/2023, 07/17/2023, Additional history exists Colorectal Cancer Screening 09/03/2033 HIB VACCINE Aged Out No longer eligi ble based on patient's age to complete this topic HPV VACCINE Aged Out No longer eligi ble based on patient's age to complete this topic MENINGOCOCCAL (Group B) VACCINE SHARED DECISION-MAKING Aged Out No longer eligible based on patient's age to complete this topic MENINGOCOCCAL GROUPS A/C/Y/W VACCINE Aged Out No longer eligible based on patient's age to complete this topic Goals Goal Patient Goal Type Associated Problems Recent Progress Patient-Stated? Author Medication Management General On track( 024 9:23 AM CAMPUS SUPERVISOR) Tiana Webster RN Note: Expected end date: ongoing Interventions: Take all medications as prescribed Let your doctor know right away about any changes in your medications Make sure to request a refill of your medication at least one week prior to your last dose Procedures Procedure Name Priority Date/Time Associated Diagnosis Comments NM LIVER ELASTOGRAPHY Routine 06/21/2024 8:14 AM CAMPUS SUPERVISOR Nonalcoholic fatty liver disease ENDOSCOPY, COLON, DIAGNOSTIC Routine 09/04/2023 7:47 AM CDT GLUCOSE - POINT OF CARE Routine 09/04/2023 7:38 AM CDT MAMMO BILAT SCREENING Routine 04/25/2013 8:18 AM CAMPUS SUPERVISOR Other screening mammogram from Last 3 Months or Most Recently Relevant to Health Maintenance Results * PROC FIBROSCAN (06/21/2024 8:14 AM CAMPUS SUPERVISOR) Narrative Winston Limon MD - 06/21/2024 8:14 AM CAMPUS SUPERVISOR Winston Limon MD 06/21/2024 4:47 PM Diagnosis: Fatty Liver RN verified patient NPO for prior 3 hours. Procedure explained. Date of Exam: 06/21/2024 Liver Stiffness: (LSM, kPa) median: 4.7 IQR/Median% (ideally < 30%): 16% CAP (controlled attenuation parameter): 355 Technical Difficulty: None Ordering Provider: Dr. Choi Fibroscan interpretation: I have personally reviewed the Fibroscan report and associated tracings. The calculated Liver Stiffness Measurement (LSM, kPa) indicates that: The probability of advanced liver fibrosis is: low. The loss of ultrasound signal, (controlled attenuation parameter, CAP [dB/m]), indicates that the probability of hepatic steatosis is: high. Winston Bustos MD The following criteria are used to indicate the probability of advanced (stage 3-4) fibrosis: < 7.0 kPa: low 7.0-8.9 kPa: low to moderate 9.0-14.9 kPa: moderate 15-20 kPa: high > 20 kPa: very high Liver stiffness > 12 kPa is associated with an increased risk of cirrhosis-related complications over the next 3-5 years (Lynnetteier, 2022). Liver stiffness > 20 kPa is also associated with a high probability of complications of portal hypertension including varices and ascites. Liver stiffness > 50 kPa is associated with a high risk of variceal bleeding. These interpretations are based on the following published data: Gordo J, Hagstr m H, Ekstiglesiat M, Monica C, Bonacooperi M, Cure S, Ampuero J, Nasr P, Tallab L, Canivet CM, Kechagias S, S nchez Y, Dincuff E, Tania A, Isaiah M, Rioken J, Trybrian A and Carlson-Dao M. Non-invasive tests accurately stratify patients with NAFLD based on their risk of liver-related events. J Hepatol (2021) 76: 2258-2738. Danielle PJ, Willy M, Gali M, et al. Accuracy of FibroScan controlled attenuation parameter and liver stiffness measurement in assessing steatosis and fibrosis in patients with nonalcoholic fatty liver disease. Gastroenterology 2019;156:4114-2857. Harrison MS, Nir R, Van Alirio ML, et al. Vibration-controlled transient elastography to assess fibrosis and steatosis in patients with nonalcoholic fatty liver disease. Clin Gastroenterol Hepatol 2019;17:156-163. Note that scores have been developed that incorporate the Fibroscan liver stiffness measurement from large cohorts of patients with liver biopsies to further refine the ability of Fibroscan to identify patients with MASH and advanced fibrosis. These include the FAST (Fibroscan-AST) score (Naz, 2021) and the Agile3+ and Agile4 scores (Pamela, 202; Meme, 202). Naz TA, Van Alirio ML, Efren M, Brad A, et al. Validation of the accuracy of the FAST score for detecting patients with at-risk nonalcoholic steatohepatitis (HORNER) in a [place] cohort and comparison to other non-invasive algorithms. PLoS ONE (2021) 17: h5657469. Pamela GIBBONS, Jazmin J, Jaqueline ZM, et al. Enhanced diagnosis of advanced fibrosis and cirrhosis in individuals with NAFLD using FibroScan-based Agile scores. J Hepatol (2022) 78: 247-259. Meme et al. Vibration-controlled transient elastography scores to predict liver-related events in steatotic liver disease. MARIA LUISA (2023) 331: 2801-9195 Fibroscan LSM can also be used with laboratory parameters without formulas to assess prognosis. According to the Baveno-VII criteria (De La Cruz, 2021), Fibroscan LSM <=15 kPa plus a platelet count of >=305g433/L rules out clinically significant portal hypertension (sensitivity and negative predictive value >90%) in patients with compensated advanced chronic liver disease. De La Cruz R, April J, Juan Manuel-Cee G, Reailyn T, Dev C on behalf of the Baveno VII Faculty. Baveno VII--Renewing consensus in portal hypertension. J Hepatol (2021) 76: 959-974 Assessing the likelihood of advanced fibrosis in patients with intermediate liver stiffness measurement (LSM) by Fibroscan (e.g., 8-15 kPa) can be improved by also calculating the FIB-4 score (Cici et al. Hepatology Communications 2019;3:0209-2207) or NAFLD Fibrosis score (Becker et al. Clinical Gastroenterology and Hepatology 2019;17:7653-5581 using routine clinical data. Notes: 1. Fibroscan cannot reliably identify earlier stages of fibrosis (ie distinguish F0 from F1 and F2) and thus a histologic stage cannot be predicted from the Fibroscan reading. 2. Liver stiffness can be increased by factors other than fibrosis including passive congestion, infiltrative processes, active alcoholism, recent moderate alcohol consumption in the 2 weeks before the exam, biliary obstruction and marked inflammation. The interpretation of the Fibroscan result provided above may not have taken such clinical factors into account. 3. Identifying steatosis by an elevated CAP score (> 250 db/m) is useful for establishing a diagnosis of steatotic liver disease. However the severity of steatosis does not correlate with liver related outcomes. Disease etiology also influences Fibroscan cutoff values for fibrosis stages and the following cutoffs have been proposed (Vladimir et al, Clin Gastro Hepatol 2015; 13:27-36): Cutoffs for Stage 3 and Stage 4 fibrosis respectively: Hepatitis B: >9 and >11.7 kPa Hepatitis C: >9.5 and >12.5 kPa HCV-HIV: >11 and >14 kPa Cholestatic liver diseases: >10 and >17.9 kPa MASLD/MASH: >10 and >14 kPa CAP estimates of steatosis: normal <200 dB/m mild 200 to 250 dB/m moderate 250-290 dB/m substantial > 290 dB/m (Note that Fibroscan is not a quantitative measure of liver fat.) These criteria are estimates and may change as additional supporting data becomes available. (This additional interpretive data was last updated 04/29/24.) [email or web address] Winston Limon MD PROCEDURE/ MINOR SURGICAL ORDERABLES Edited Result - Final * ENDOSCOPY, COLON, DIAGNOSTIC (09/04/2023 7:47 AM CDT) Report Endoscopy POC Endoscopy Department Report _ Patient Name: Savanah Walker Procedure Date: 09/04/2023 7:47 AM Date of : 1965 Classification: Outpatient Gender: Female Ethnicity: Not or Race: White _ Providers: Susan Kiran MD Referring MD: Melani Encinas MD (Referring MD) Procedure: Colonoscopy Indications: Microscopic colitis, dysplasia detected on random biopsy of the colon Medications: Monitored Anesthesia Care Patient Profile: This is a 58 year old female. Description of Procedure: After I obtained informed consent, the scope was passed under direct vision. Throughout the procedure, the patient's blood pressure, pulse, and oxygen saturations were monitored continuously. The [id number] was introduced through the anus and advanced to the cecum, identified by appendiceal orifice and ileocecal valve. The colonoscopy was performed without difficulty. The patient tolerated the procedure well. Scope insertion time was 6 minutes. Scope withdrawal time was 41 minutes. The quality of the bowel preparation was evaluated using the BBPS ([place] Bowel Preparation Scale). The total BBPS score equals 9. To enhance insepction, Endocuff distal attachment was used. RezeeGenius (resmio) was used to assist in polyp detection. Findings: The perianal and digital rectal examinations were normal. Staining chromoscopy with methylene blue was performed in the entire colon. Irrigation chromoendoscopy technique was used. A 3 mm polyp was found in the cecum. The polyp was sessile. The polyp was removed with a cold snare. Resection and retrieval were complete. Two flat and sessile polyps were found in the ascending colon. The polyps were 1 to 3 mm in size. These polyps were removed with a cold biopsy forceps. Resection and retrieval were complete. A 7 mm polyp was found in the transverse colon. The polyp was flat. The polyp was removed with a cold snare. Resection and retrieval were complete. A diffuse area of mildly congested and erythematous mucosa was found in the ascending colon and in the cecum. Biopsies for histology were taken with a cold forceps from the cecum, ascending colon, left colon, transverse colon and rectum for evaluation of microscopic colitis. Estimated Blood Loss: Estimated blood loss was minimal. Complications: No immediate complications. Impression: - Chromoscopy was performed in the entire colon. - One 3 mm polyp in the cecum, removed with a cold snare. Resected and retrieved. - Two 1 to 3 mm polyps in the ascending colon, removed with a cold biopsy forceps. Resected and retrieved. - One 7 mm polyp in the transverse colon, removed with a cold snare. Resected and retrieved. - Mildly congested and erythematous mucosa in the ascending colon and in the cecum. - Biopsies were taken with a cold forceps from the cecum, ascending colon, left colon, transverse colon and rectum for evaluation of microscopic colitis. Recommendation: - Patient has a contact number available for emergencies. The signs and symptoms of potential delayed complications were discussed with the patient. Return to normal activities tomorrow. Written discharge instructions were provided to the patient. - Resume previous diet. - Await pathology results. - Return to GI office. Attending Participation: I personally performed the entire procedure. Procedure Code(s): --- Professional --- 43043, Colonoscopy, flexible; with removal of tumor(s), polyp(s), or other lesion(s) by snare technique 11805, 59, Colonoscopy, flexible; with biopsy, single or multiple Diagnosis Code(s): --- Professional --- D12.2, Benign neoplasm of ascending colon D12.3, Benign neoplasm of transverse colon (hepatic flexure or splenic flexure) K63.89, Other specified diseases of intestine K52.839, Microscopic colitis, unspecified CPT copyright 2021 [employer]. All rights reserved. The codes documented in this report are preliminary and upon sales associate key holder review may be revised to meet current compliance requirements. Susan Kiran MD, 09/04/2023 9:13:12 AM This report has been signed electronically. Note Initiated On: 09/04/2023 7:47 AM Number of Addenda: [address] [address] [facility] 09/04/2023 7:47 AM CDT Susan Kiran MD GI PROCEDURE ORDERABLES Edited R esult - Final [facility] * (ABNORMAL) GLUCOSE - POINT OF CARE (09/04/2023 7:38 AM CDT) Glucose WB/POC 221(H) 70 - 115 mg/dL 09/04/2023 11:21 AM CDT [facility] Specimen Type Venous 09/04/2023 11:21 AM CDT [facility] Blood BLOOD SPECIMEN / Unknown 09/04/2023 7:38 AM CDT 09/04/2023 11:21 AM CDT Susan Kiran MD LAB - POINT OF CARE ORDERABLES F inal Result [facility] [address] [place] [address], [facility] [phone] * MAMMO SCREENING DIGITAL IMAGE BILAT G0202 (04/25/2013 8:18 AM CAMPUS SUPERVISOR) Anatomical Region Laterality Modality Breast Bilateral Mammography 04/25/2013 2:43 PM CAMPUS SUPERVISOR Narrative 04/25/2013 2:59 PM CAMPUS SUPERVISOR DATE: 04/25/2013 DIGITAL BILATERAL SCREENING MAMMOGRAMS WITH CAD PREVIOUS EXAM DATE: March 01, 2012 INDICATION: Screening. TECHNIQUE: Bilateral craniocaudad (CC) and mediolateral oblique (MLO) views. Images were interpreted with the aid of CAD. TECHNOLOGIST: RT John(R)(M) TISSUE DENSITY: Average FINDINGS: No significant new findings when compared to previous examination. ASSESSMENT: Negative, BI-RADS 1 RECOMMENDATIONS: Continue annual screening mammography in one year. The above findings should be correlated with physical examination. A relatively nonspecific study should not preclude additional evaluation if suspicious findings are present clinically. An [employer]. [facility] utilizes [employer] as a reminder system to notify patients of their next recommended mammograms. Edited by Melissa Mccormick on 04/25/2013 2:54 PM Procedure Note Tayler Ruiz MD - 04/25/2013 DATE: 04/25/2013 DIGITAL BILATERAL SCREENING MAMMOGRAMS WITH CAD PREVIOUS EXAM DATE: March 01, 2012 INDICATION: Screening. TECHNIQUE: Bilateral craniocaudad (CC) and mediolateral oblique (MLO) views. Images were interpreted with the aid of CAD. TECHNOLOGIST: RT John(R)(M) TISSUE DENSITY: Average FINDINGS: No significant new findings when compared to previous examination. ASSESSMENT: Negative, BI-RADS 1 RECOMMENDATIONS: Continue annual screening mammography in one year. The above findings should be correlated with physical examination. A relatively nonspecific study should not preclude additional evaluation if suspicious findings are present clinically. An [employer] [facility]. [facility] utilizes [employer] as a reminder system to notify patients of their next recommended mammograms. Edited by Melissa Mccormick on 04/25/2013 2:54 PM Alonso Núñez MD MAMMO ORDERABLES Final Result from Last 3 Months or Most Recently Relevant to Health Maintenance Insurance [facility] MEDICAID Care Teams Apprentice Painter Neckties Relationship Specialty Start Date End Date Fela Gruber [address] [place] [address] PCP - General 10/06/23 Renard Hui MD Otolaryngology 02/05/11 Conor Russo MD [address] [place] [address] Orthopedic Surgery 02/05/11 Deana Garza, landscape artist 08/05/12
--- OUTSIDE RECORDS SUMMARY | 2024-09-08 13:00 | XMS_ITS | Encounter Summary ---
Author Organization [facility] Address [address] [place] [address] Phone Care Team Providers Care Gas Turbine Powerplant Mechanic Helper Name Role Phone Lorenza Thornton APRN Primary Care Provider [phone] Lenin Porter APRN, RECRUITING ADMINISTRATOR Unavailable [phone] Reason for Visit * Reason Comments Medication Refill Encounter Details Date Type Department Care Team (Late st Contact Info) Description 06/08/2023 Refill [facility] [address] [place] [address] Lenin Porter APRN, RECRUITING ADMINISTRATOR [address] [place] [address] Medication Refill Social History Tobacco Use Types Packs/Day Years Used Date Smoking Tobacco: Every Day Cigarettes 0.5 35.8 Started: 11/22/1988 Smokeless Tobacco: Never Alcohol Use Standard Drinks/Week Comments Never 0 (1 standard drink = 0.6 oz pure alcohol) has been years since she had a drink AUDIT-C Answer Date Recorded Frequency of Alcohol Consumption Never 11/22/2018 Average Number of Drinks Not on file 019 Frequency of Binge Drinking Not on file 10/26 Comments No Sex and Gender Information Value Date Recorded Sex Assigned at Not on file Legal Sex Female 10:24 AM CDT Gender Identity Not on file Sexual Orientation Not on file documented as of this encounter Miscellaneous Notes * Telephone Encounter - Gertrudis Powell RN - 06/09/2023 8:50 AM CST Per nursing clinical judgement, provider to review and approve the medication(s) order(s) if appropriate. Requested Prescriptions Pending Prescriptions Disp Refills solifenacin (VESICARE) 10 MG Tablet [Pharmacy Med Name: Solifenacin Succinate 10 MG Oral Tablet] 90Tablet 0 Sig: Take 1 tablet by mouth once daily Urinary Anticholinergics Protocol Failed - 06/08/2023 6:25 PM Failed - GFR greater than or equal to 30 in past 12 months No results found for: GFRNA Passed - Visit with relevant provider in past 12 months or upcoming 90 days Recent Visits Date Type Provider Dept 03/24/23 Office Visit Lenin Porter APRN, CNP [facility] 02/16/23 Office Visit Lenin Porter APRN, CNP [facility] Showing recent visits within past 365 days and meeting all other requirements Future Appointments Date Type Provider Dept 06/23/23 Appointment Lenin Porter APRN, CNP [facility] Showing future appointments within next 90 days and meeting all other requirements LACTATION CONSULTANT documented in this encounter Plan of Treatment Upcoming Encounters Date Type Department Care Team (Late st Contact Info) Description 06/27/2025 10:00 AM RN LACTATION CONSULTANT Office Visit [facility] [address] [place] [address] Lenin Porter APRN, RECRUITING ADMINISTRATOR [address] [place] [address] documented as of this encounter Visit Diagnoses Diagnosis Urinary frequency Urinary urgency Urgency of urination Urinary incontinence, urge Urge incontinence documented in this encounter Care Teams Gas Turbine Powerplant Mechanic Helper Relationship Specialty Start Date End Date Lorenza Thornton APRN PCP - General Advanced Practice Nurse 11/18/18 Lenin Porter APRN, RECRUITING ADMINISTRATOR [address] [place] [address] Nurse Practitioner Advanced Practice Nurse 02/16/23 documented as of this encounter
[2024-09-08 19:43] LABS: Alanine Aminotransferase 36 U/L (6-35); Albumin Level 5.1 g/dL (3.5-5.1); Alkaline Phosphatase 110 U/L (38-126); Anion Gap 15 mmol/L (4-12); Aspartate Amino Transferase 61 U/L (14-36); Bilirubin,Total 0.8 mg/dL (0.2-1.3); Blood Urea Nitrogen 17 mg/dL (7-17); Calcium 9.5 mg/dL (8.4-10.2); Carbon Dioxide 21 mmol/L (22-30); Chloride 101 mmol/L (98-107); Cholesterol 203 mg/dL (0-200); Estimated Glomerular Filt Rate > 60; Glucose 170 mg/dL (65-110); HDL Direct 41 mg/dL; Potassium 3.5 mmol/L (3.4-5.0); Sodium 137 mmol/L (137-145); Triglycerides 437 mg/dL (<150)
[2024-09-08 19:54] LABS: LDL Cholesterol Direct 89 mg/dL
[2024-09-08 20:20] LABS: Microalbumin Urine Random 26.6 mg/L (0-16.7)
[2024-09-08 20:22] LABS: Creatinine Urine 44.4 mg/dL; MALB Creatinine Ratio 59.9 mg/g (0-30)
[2024-09-08 20:59] LABS: Free T4 Free Thyroxine 1.34 ng/dL (0.78-2.19)
[2024-09-08 22:33] LABS: Hemoglobin A1C 9.3 % (<5.7)
== END 2024-09-08 12:54 | disposition home or self-care (01) ==
LOC: ANHBWCLAB 12:56
PROVIDERS: PCP Nurse Practitioner Adult Health; Visit Provider Nurse Practitioner Adult Health
DX: R53.83 Other fatigue (principal); E11.9 Type 2 diabetes mellitus without complications; M54.9 Dorsalgia, unspecified
CPT/HCPCS: 36415; 72100; 80053; 80061; 82043; 82565; 82607; 83036; 84439; 84443

== ENCOUNTER 2024-10-09 07:32 | Outpatient (CLI) | payer BC, SELFPAY ==
--- NOTE | ~2024-10-09 | MR_ITS ---
MRI of the brain Clinical History: Dizziness and giddiness Technique: Axial and sagittal T1-weighted images were acquired. These were followed by axial T2-weigh sarah, diffusion weighted, gradient, and FLAIR images. Findings: No abnormal signal seen in the brain parenchyma. No acute infarct, intracranial hemorrhage, or mass lesion. Ventricles and subarachnoid spaces are unremarkable. Orbits are unremarkable. Paranasal sinuses and m astoid air cells are clear. Major intracranial flow voids are intact. Sagittal midline structures are intact. IMPRESSION: Normal exam. Reviewed, dictated and finalized at location M. IMPRESSION: Normal exam.
--- OUTSIDE RECORDS SUMMARY | 2024-10-09 07:37 | XMS_ITS | CONTINUITY OF CARE DOCUMENT ---
Author Name garrett tucker Address Unknown Organization [facility] Address [address] [place] [address] Phone [phone] Care Team Providers Care Shell Sieve Operator Name Role Phone Marilin Duffy MD Unavailable Marilin Duffy MD Unavailable AGNIESZKA CORCORAN Unavailable [phone] INSURANCE PROVIDERS Payer name Policy type / Coverage type Adis red alliance party ID [facility] [id number]
--- OUTSIDE RECORDS SUMMARY | 2024-10-09 07:37 | XMS_ITS | Clinical Summary ---
Author Organization [facility] Address [address] [place] [address] Phone Care Team Providers Care Aerodynamics Professor Name Role Phone Lorenza Thornton APRN Primary Care Provider [phone] Lenin Porter APRN, GREASE MAKER Unavailable [phone] Allergies No known active allergies Medications traMADol [...] Particles Take 60 mg by mouth. 10/17/19 20 Active gabapentin (NEURONTIN) 300 MG Capsule gabapentin 300 mg capsule Active enalapril (VASOTEC) 10 MG Tablet Take 10 mg by mouth daily. 08/25/19 Active empagliflozin (Jardiance) 25 MG Tablet Take 25 mg by mouth daily. 09/03/19 21 Active metFORMIN (GLUCOPHAGE) 500 MG Tablet metformin [...] by mouth daily. 90 Tablet 3 06/21/19 25 Active Active Problems Problem Noted Date Diagnosed Date Iron deficiency 12/16/2018 Current smoker 11/22/2018 Chronic mastoiditis of left side 11/22/2018 Bandemia 11/22/2018 Chronic diarrhea 11/22/2018 Immunizations Immunization Administration Dates Next Due TDAP [...] Date Smoking Tobacco: Every Day Cigarettes 0.5 35.9 Started: 11/22/1988 Smokeless Tobacco: Never Tobacco Cessation:Ready [...] Comments Blood Pressure 151/96 06/21/2024 1:57 PM INTERMODAL CUSTOMER SERVICE Pulse 92 06/21/2024 1:57 PM INTERMODAL CUSTOMER SERVICE Temperature 36 C (96.8 F) 01/12/2019 12:24 PM CDT Respiratory Rate 18 06/21/2024 1:57 PM INTERMODAL CUSTOMER SERVICE Oxygen Saturation 96% 06/21/2024 1:57 PM INTERMODAL CUSTOMER SERVICE Inhaled Oxygen Concentration - - Weight 89.4 kg (197 lb) 06/21/2024 1:57 PM INTERMODAL CUSTOMER SERVICE Height 170.2 cm (5' 7) 06/21/2024 1:57 PM INTERMODAL CUSTOMER SERVICE Body Mass Index 30.85 06/21/2024 1:57 PM INTERMODAL CUSTOMER SERVICE Plan of Treatment Upcoming Encounters Date Type Department Care Team (Late st Contact Info) Description 06/27/2025 10:00 AM INTERMODAL CUSTOMER SERVICE Office Visit [facility] [address] [place] [address] Lenin Porter, MACHINE HEEL SEAT FITTER, GREASE MAKER [address] [place] [address] Health Maintenance Due Date Last Done Comments Hepatitis C Virus (HCV) Screening 1965 Hepatitis B Immunization (1 of 3 - 19+ 3-dose series) 1984 Pneumococcal Immunization (50+ years) (1 of 2 - PCV) 1984 Pap Smear 1986 Cervical Cancer Screening (CCS) 08/25/1995 HPV/Cotest 08/25/1995 Cologuard 2010 Immunochemical Fecal Occult Blood 2010 Mammogram 04/25/2014 04/25/2013 Zoster Immunization (1 of 2) 08/25/2015 SARS-COV-2 Immunization (3 - season) 2023 09/10/2020, 08/20/2020 Influenza Immunization (Season Ended) 2024 Td Immunization Every 10 Years (Adults With 1 Tdap) 10/20/2027 10/19/2017, 04/27/2009, 01/28/2009 Colonoscopy 09/03/2028 09/04/2023, 08/25, 07/17/2023, Additional history exists Colorectal Cancer Screening 09/03/2028 Respiratory Syncytial Virus (RSV) Immunization (Adult) (1 - 1-dose 75+ series) 2040 DTaP/Tdap/Td Immunization Discontinued 2017, 04/27/2009, 01/28/2009 TdaP Immunization Discontinued 10/19/2017, 04/27/2009 Human Papillomavirus (HPV) Immunization Aged Out No longer eligible based on patient's age to complete this topic Meningococcal Immunization (ACWY) Aged Out No longer eligible based on patient's age to complete this topic Rotavirus Immunization Aged Out No lo nger eligible based on patient's age to complete this topic Insurance [place]ID [place] [id number] Care Teams Aerodynamics Professor Relationship Specialty Start Date End Date Lorenza Thornton APRN PCP - General Advanced Practice Nurse 11/18/18 Lenin Porter APRN, GREASE MAKER [address] [place] [address] Nurse Practitioner Advanced Practice Nurse 02/16/23
--- OUTSIDE RECORDS SUMMARY | 2024-10-09 07:37 | XMS_ITS | Encounter Summary ---
Author Organization [facility] Address [address] [place] [address] Phone Care Team Providers Care Fruit Tester Name Role Phone Lorenza Thortnon APRN Primary Care Provider [phone] Lenin Porter APRN, GUIDE ESCORT Unavailable Reason for Visit * Reason Comments Medication Refill Encounter Details Date Type Department Care Team (Late st Contact Info) Description 06/08/2023 Refill [facility] [address] [place] [address] Lenin Porter APRN, GUIDE ESCORT [address] [place] [address] Medication Refill Social History Tobacco Use Types Packs/Day Years Used Date Smoking Tobacco: Every Day Cigarettes 0.5 35.9 Started: 11/22/1988 Smokeless Tobacco: Never Alcohol Use [...] 02/16/23 Office Visit Lenin Porter APRN, CNP [facility] Showing recent visits within past 365 days and meeting all other requirements Future Appointments Date Type Provider Dept 06/23/23 Appointment Lenin Porter APRN, CNP [facility] Showing future appointments within next 90 days and meeting all other requirements GER STRATEGIC MARKETING documented in this encounter Plan of Treatment Upcoming Encounters Date Type Department Care Team (Late st Contact Info) Description 06/27/2025 10:00 AM MANAGER STRATEGIC MARKETING Office Visit [facility] [address] [place] [address] Lenin Porter APRN, GUIDE ESCORT [address] [place] [address] documented as of this encounter Visit Diagnoses Diagnosis Urinary frequency Urinary urgency Urgency of urination Urinary incontinence, urge Urge incontinence documented in this encounter Care Teams Fruit Tester Relationship Specialty Start Date End Date Lorenza Thornton APRN PCP - General Advanced Practice Nurse 11/18/18 Lenin Porter APRN, GUIDE ESCORT [address] [place] [address] Nurse Practitioner Advanced Practice Nurse 02/16/23 documented as of this encounter
== END 2024-10-09 07:33 | disposition home or self-care (01) ==
PROVIDERS: PCP Nurse Practitioner Adult Health; Visit Provider Nurse Practitioner Adult Health
DX: R42 Dizziness and giddiness (principal); H53.9 Unspecified visual disturbance
CPT/HCPCS: 70551

== ENCOUNTER 2025-02-07 10:06 | Outpatient (CLI) | payer OTHER, SELFPAY ==
--- OUTSIDE RECORDS SUMMARY | 2025-02-07 11:38 | XMS_ITS | Clinical Summary ---
Author Organization [facility] Address [address] [place] [address] Phone Care Team Providers Care Executive Candidate Developer Name Role Phone Unavailable Primary Care Provider Unavailabl e Social History Tobacco Use Types Packs/Day Years Used Date Smoking Tobacco: Never Assessed Comments Unknown Sex and Gender Information Value Date Recorded Sex Assigned at Not on file Legal Sex Female 10:07 AM PIANO MOVER Gender Identity Not on file Sexual Orientation [...] (1 of 2) 08/25/2015 INFLUENZA VACCINE (#1) 2024
--- OUTSIDE RECORDS SUMMARY | 2025-02-07 11:39 | XMS_ITS | Encounter Summary ---
Author Organization [facility] Address [address] [place] [address] Phone Care Team Providers Care Records Supervisor Name Role Phone Lorenza Thornton APRN Primary Care Provider [phone] Lenin Porter APRN, HOTEL ASSISTANT MANAGER Unavailable [phone] Reason for Visit * Reason Comments Medication Refill Encounter Details Date Type Department Care Team (Late st Contact Info) Description 06/08/2023 Refill [facility] [address] [place] [address] Lenin Porter APRN, HOTEL ASSISTANT MANAGER [address] [place] [address] Medication Refill Social History Tobacco Use Types Packs/Day Years Used Date Smoking Tobacco: Every Day Cigarettes 0.5 36.2 Started: 11/22/1988 Smokeless Tobacco: Never Alcohol Use [...] 02/16/23 Office Visit Lenin Porter APRN, CNP [facility] Showing recent visits within past 365 days and meeting all other requirements Future Appointments Date Type Provider Dept 06/23/23 Appointment Lenin Porter APRN, CNP [facility] Showing future appointments within next 90 days and meeting all other requirements C FANS MECHANIC documented in this encounter Plan of Treatment Upcoming Encounters Date Type Department Care Team (Late st Contact Info) Description 06/27/2025 10:00 AM ATTIC FANS MECHANIC Office Visit [facility] [address] [place] [address] Lenin Porter APRN, HOTEL ASSISTANT MANAGER [address] [place] [address] documented as of this encounter Visit Diagnoses Diagnosis Urinary frequency Urinary urgency Urgency of urination Urinary incontinence, urge Urge incontinence documented in this encounter Care Teams Records Supervisor Relationship Specialty Start Date End Date Lorenza Thornton APRN PCP - General Advanced Practice Nurse 11/18/18 Lenin Porter APRN, HOTEL ASSISTANT MANAGER [address] [place] [address] Nurse Practitioner Advanced Practice Nurse 02/16/23 documented as of this encounter
--- OUTSIDE RECORDS SUMMARY | 2025-02-07 11:39 | XMS_ITS | Clinical Summary ---
Author Organization [facility] Address [address] [place] [address] Phone Care Team Providers Care Financial Controller Name Role Phone Lorenza Thornton APRN Primary Care Provider [phone] Lenin Porter APRN, MANAGER CONTROL Unavailable [phone] Allergies No known active allergies Medications traMADol [...] 0.5 36.2 Started: 11/22/1988 Smokeless Tobacco: Never Tobacco Cessation:Ready [...] Comments Blood Pressure 151/96 06/21/2024 1:57 PM RODEO PERFORMER Pulse 92 06/21/2024 1:57 PM RODEO PERFORMER Temperature 36 C (96.8 F) 01/12/2019 12:24 PM CDT Respiratory Rate 18 06/21/2024 1:57 PM RODEO PERFORMER Oxygen Saturation 96% 06/21/2024 1:57 PM RODEO PERFORMER Inhaled Oxygen Concentration - - Weight 89.4 kg (197 lb) 06/21/2024 1:57 PM RODEO PERFORMER Height 170.2 cm (5' 7) 06/21/2024 1:57 PM RODEO PERFORMER Body Mass Index 30.85 06/21/2024 1:57 PM RODEO PERFORMER Plan of Treatment Upcoming Encounters Date Type Department Care Team (Late st Contact Info) Description 06/27/2025 10:00 AM RODEO PERFORMER Office Visit [facility] [address] [place] [address] Lenin Porter, CITY ROUTE DRIVER, MANAGER CONTROL [address] [place] [address] Health Maintenance Due Date Last Done Comments Hepatitis C Virus (HCV) Screening 1965 Hepatitis B Immunization (1 of 3 - 19+ 3-dose series) 1984 Pneumococcal Immunization (50+ years) (1 of 2 - PCV) 1984 Pap Smear 1986 Cervical Cancer Screening (CCS) 08/25/1995 HPV/Cotest 08/25/1995 Cologuard 2010 Immunochemical Fecal Occult Blood 2010 Mammogram 04/25/2014 04/25/2013 Zoster Immunization (1 of 2) 08/25/2015 Influenza Immunization (#1) 2024 SARS-COV-2 Immunization ( - season) 2024 09/10/2020, 08/20/2020 Td Immunization Every 10 Years [...] this topic Insurance MEDICAID BLUE [place] Care Teams Financial Controller Relationship Specialty Start Date End Date Lorenza Thornton APRN PCP - General Advanced Practice Nurse 11/18/18 Lenin Porter APRN, MANAGER CONTROL [address] [place] [address] Nurse Practitioner Advanced Practice Nurse 02/16/23
--- OUTSIDE RECORDS SUMMARY | 2025-02-07 11:39 | XMS_ITS | Clinical Summary ---
Author Organization [facility] Address [address] [place] [address] Care Team Providers Care Clerical Aide Name Role Phone Renard Hui MD Unavailable [phone] Conor Russo MD Unavailable [phone] Deana Garza RN Unavailable Unavailable Flea Gruber Primary Care Provider [phone] Source Comments [facility],non-owned Affiliates and Associated Physician Practices is amultiple site organization consisting of ambulatory clinics and hospital sitesin [place], [place], [place] and [place]. This disclosure is being madepursuant to the Care Everywhere program and may not contain all information available regarding this patient. Last updated 18.[facility] Allergies No known active allergies Medications * Be aware that medications may not be up to date on this document. Alwaysverify current medications with the patient. Multiple Vitamin (MULTI-VITAMIN ) TABS Take 1 (one) tablet by mouth once daily Active clonazePAM (KLONOPIN) 0.5 MG tablet Take 2 (two) tablets by mouth 3 times daily Active ciprofloxacin- dexamethasone (CIPRODEX) 0.3-0.1 % otic suspension 4 (four) drops 2 times daily Shake well before using. Active meclizine (ANTIVERT) 25 MG tabletIndicati ons:BPPV (benign paroxysmal positional vertigo),Verti go Take 1 Tab by mouth 3 times daily as needed for Dizziness. 30 Tab 0 3 Active Additional Information Patient taking differently:25 mg Oral 3 TIMES DAILY PRN, Dizziness,2 tablets in am, Reported on 12/12/2024 traMADol (ULTRAM) 50 MG tabletIndicati ons:Chronic neck pain Take 1-2 Tabs by mouth every 6 hours as needed. 120 Tab 0 3 Active albuterol HFA (VENTOLIN HFA) 108 (90 BASE) MCG/ACT inhaler Inhale 2 Puffs by mouth every 6 hours as needed. 1 Inhaler 5 5 Active budesonide-for moterol (SYMBICORT) 160-4.5 MCG/ACT inhaler Inhale 2 (two) puffs by mouth 2 times daily 0 Active DULoxetine (CYMBALTA) 60 MG capsule Take 1 (one) capsule by mouth once daily 0 Active enalapril (VASOTEC) 10 MG tablet once daily Active traZODone (DESYREL) 150 MG tablet Take 1 (one) tablet by mouth at bedtime 0 Active atorvastatin (LIPITOR) 40 MG tablet Take [...] 4 hours as needed for Spasms Active cyclobenzaprin e (Flexeril) 10 MG tablet Take 1 (one) tablet by mouth 3 times daily as needed for Muscle Spasms Active Jardiance 25 MG tablet Take 1 (one) tablet by mouth once daily 3 Active Gemtesa 75 MG tablet Take 1 (one) tablet by mouth once daily 4 Active OneTouch Verio test strip 1 (one) strip as directed 5 Active Lancets (ONETOUCH DELICA PLUS 33G EXTRA FINE LANCET) 5 Active mometasone (Elocon) 0.1 % cream Apply to affected area once daily Active valACYclovir (Valtrex) 1 GM tablet Take 0.5 (one-half) tablet by mouth once daily as needed Active Lysine 1000 MG Take 1 tablet by mouth once daily Active Ascorbic Acid (VITAMIN C PO) Take 1 tablet by mouth once daily Active ondansetron (Zofran) 4 MG tabletIndicati ons:Nausea Take 1 (one) tablet by mouth every 6 hours as needed for Nausea/Vomiting 30 tablet 5 Active chlorthalidone (HYGROTON) 25 MG tabletIndicati ons:HTN (hypertension) Take 1 Tab by mouth once daily. 90 Tab 0 3 12/12/19 20 Discontin ued(Exclu de AVS) Active Problems Problem [...] Encounters Date Type Department Care Team Description 12/12/2024 10:30 AM CDT Office Visit [facility] - GI [address] [place] [phone] Marlene Das, HOME SUPERVISOR-FERNANDEZ Irritable bowel syndrome with diarrhea (Primary Dx); Diarrhea, unspecified type; Abdominal pain, unspecified abdominal location; Nausea; Controlled type 2 diabetes mellitus without complication, unspecified whether mcfp insulin use (HCC) 12/12/2024 Travel 11/15/2024 Telephone [facility] [address] [place] [phone] Hamzah Chi RN Results 11/08/2024 3:29 PM CDT - 11/08/2024 11:59 PM CDT Hospital Encounter [facility] [address] [place] [address] Lorenza Thornton APRN-CNP Discharge Disposition: Home or Self Care from Last 3 Months Immunizations Immunization Administration Dates Next Due TD VACCINE 01/28/2009 Family History Medical History Relation Name Comments Asthma Mother Heart Failure Mother Relation Name Status Comments Father Alive Mother Alive Social History Tobacco Use Types Packs/Day Years Used Date Smoking Tobacco: Former Cigarettes 0.5 25 1 2021 Passive Smoke Exposure: Never Smokeless Tobacco: Never Tobacco Cessation:Counseling Given: Not Answered Alcohol Use Standard Drinks/Week Comments No 0 (1 standard drink = 0.6 oz pur e alcohol) Comments No Sex and Gender Information Value Date Recorded Sex Assigned at Not on file Legal Sex Female 12:14 PM MEDICARE NURSE Gender Identity Not on file Sexual Orientation Not on file Last Filed Vital Signs Vital Sign Reading Time Taken Comments Blood Pressure 124/92 12/12/2024 11:27 AM CDT pt remains asymptomatic Pulse 104 12/12/2024 10:30 AM CDT Temperature 36.5 C (97.7 F) 09/07/2023 11:20 AM CDT Respiratory Rate 18 09/07/2023 11:2 0 AM CDT Oxygen Saturation 100% 12/12/2024 10: 30 AM CDT Inhaled Oxygen Concentration - - Weight 84.2 kg (185 lb 9.6 oz) 12/12/2024 10:30 AM CDT Height 170.2 cm (5' 7) 12/12/2024 10:3 0 AM CDT Body Mass Index 29.07 12/12/2024 10:30 AM CDT Plan of Treatment Upcoming Encounters Date Type Department Care Team (Late st Contact Info) Description 06/14/2025 10:30 AM MEDICARE NURSE Office Visit [facility] - GI [address] [facility] [place] [address] Marlene Das APRN-CNP [address] [place] [id number] Health Maintenance Due Date Last Done Comments COLOGUARD (AGES 45-75) - COLON CA SCREENING 1965 CT COLONOGRAPHY - COLON CA SCREENING 1965 FIT - COLON CA SCREENING 1965 FLEX SIG - COLON CA SCREENING 1965 HIV SCREENING 1980 HEPATITIS C SCREENING 08/20/1983 HEPATITIS B VACCINE (1 of 3 - 19+ 3-dose series) 1984 PNEUMOCOCCAL VACCINE 50+ (1 of 2 - PCV) 1984 PAP SMEAR 06/28/2013 06/28/2010, 06/28/2010 MAMMOGRAM 04/25/2015 04/25/2013, 11/0 08/2011, 05/31/2010, Additional history exists ZOSTER VACCINE (1 of 2) 08/25/2015 DTAP/TDAP/TD VACCINES (2 - Td or Tdap) 01/28/2019 01/28/2009 DEPRESSION SCREENING 04/27/2024 COVID-19 VACCINE (3 - season) 2024 09/10/2020, 08/20/2020 INFLUENZA VACCINE (#1) 2024 SCREENING FOR DIABETES 09/03/2026 , 07/17/2023, [...] Patient-Stated? Author Medication Management General On track( 025 10:23 AM CDT) Tiana Wesbter, RN Note: Expected end date: ongoing Interventions: Take all medications as prescribed Let your doctor know right away about any changes in your medications Make sure to request a refill of your medication at least one week prior to your last dose Procedures Procedure Name Priority Date/Time Associated Diagnosis Comments PANCREATIC ELASTASE FECES Routine 11/08/2024 3:30 PM CDT Diarrhea, unspecified type E COLI SHIGA-LIKE TOXIN Routine 11/08/2024 3:30 PM CDT Noninfectious gastroenteritis, unspecified type CULTURE STOOL PANEL Routine 11/08/2024 3 :30 PM CDT Noninfectious gastroenteritis, unspecified type CULTURE STOOL+ECOLI SHIGA-LIKE TOXIN (BEAKER) Routine 11/08/2024 3:30 PM CDT Noninfectious gastroenteritis, unspecified type C DIFFICILE GDH AG + TOXIN A+B Routine 11/08/2024 3:30 PM CDT Diarrhea, unspecified type ENDOSCOPY, COLON, DIAGNOSTIC Routine 09/04/2023 7:47 AM CDT GLUCOSE - POINT OF CARE Routine 09/04/2023 7:38 AM CDT MAMMO BILAT SCREENING Routine 04/25/2013 8:18 AM MEDICARE NURSE Other screening mammogram from Last 3 Months or Most Recently Relevant to Health Maintenance Results * C DIFFICILE GDH AG + TOXIN A+B (11/08/2024 3:30 PM CDT) C difficile GDH antigen & toxin A/B NEGATIVE NEGATIVE 11/09/2024 7:32 AM CDT [facility] Stool STOOL SPECIMEN / Unknown Collection / Unknown 11/08/2024 3:30 PM CDT 11/08/2024 4:35 PM CDT Narrative [facility] - 11/09/2024 7:32 AM CDT Negative for toxigenic C. difficile Marlene Das HOME SUPERVISOR-MOLASSES PREPARER LAB - MICROBIOLO GY ORDERABLES Final Result Performing Organization Address City/[facility]/ZIP Co de Phone Number [facility] [address] [place], [place] [address], [facility] [phone] * (ABNORMAL) PANCREATIC ELASTASE FECES (11/08/2024 3:30 PM CDT) Pancreatic Elastase Feces 14(L) >=100 ug/g 11/12/2024 2:27 PM CDT [facility] ([facility]) Comment: The specimen submitted indicated possible watery diarrhea. Because watery stool is inherently dilute, low test results should be interpreted with caution. Retesting on formed stool is recommended. REFERENCE INTERVAL: Pancreatic Elastase Fecal by Immunoassay Less than 100 ug/g............Severe insufficiency 100 - 199 ug/g................Moderate insufficiency 200 ug/g or greater...........Normal INTERPRETIVE INFORMATION: Pancreatic Elastase Fecal by Immunoassay Reference intervals do not apply for infants less than one month old. Performed By: [facility] [address] [place] [address] Branch Lead: Refugio Sheth MD, PhD CLIA Number: [id number] Stool STOOL SPECIMEN / Unknown Collection / Unknown 11/08/2024 3:30 PM CDT 11/08/2024 4:35 PM CDT Marlene Das [facility] - BODY FLUID ORDERABLES Final Result Performing Organization Address [facility] Co de Phone Number [employer] ([facility]) [address] [place], [place] [id number] [place] [address] * E COLI SHIGA-LIKE TOXIN (11/08/2024 3:30 PM CDT) Shiga Toxin Negative for E. coli Shiga-like toxin. Negative 11/10/2024 12:32 PM CDT [facility] Stool STOOL SPECIMEN / Unknown Collection / Unknown 11/08/2024 3:30 PM CDT 11/08/2024 4:35 PM CDT Lorenza Thornton [facility] - MICROBIOLOGY ORDER RAJIV Final Result Performing Organization Address City/[facility]/ZIP Co de Phone Number [facility] [address] [place] [address], [facility] [phone] * CULTURE STOOL PANEL (11/08/2024 3:30 PM CDT) Culture No growth Salmonella, Shigella, Campylobacter, Escherichia coli O157:h7 or Yersinia JANETH 11/11/2024 9:03 AM CDT [facility] Stool STOOL SPECIMEN / Unknown Collection / Unknown 11/08/2024 3:30 PM CDT 11/08/2024 4:35 PM CDT Lorenza Thornton [facility] - MICROBIOLOGY ORDER RAJIV Final Result Performing Organization Address [facility] de Phone Number [facility] [address] [place] [address], [facility] [phone] * ENDOSCOPY, COLON, DIAGNOSTIC (09/04/2023 7:47 AM [...] and oxygen saturations were monitored continuously. The [id number] was introduced through the anus and advanced to the cecum, identified by appendiceal orifice and ileocecal valve. The colonoscopy was performed without difficulty. The patient tolerated the procedure well. Scope insertion time was 6 minutes. Scope withdrawal time was 41 minutes. The quality of the bowel preparation was evaluated using the BBPS (Uneeda Bowel Preparation Scale). The total BBPS score equals 9. To enhance insepction, Endocuff distal attachment was used. [employer] ([employer]) was used to assist in polyp detection. [...] entire procedure. Procedure Code(s): --- Professional --- 52825, Colonoscopy, flexible; with removal of tumor(s), polyp(s), or other lesion(s) by snare technique 61666, 59, Colonoscopy, flexible; with biopsy, single or multiple Diagnosis Code(s): --- Professional --- D12.2, Benign neoplasm of ascending colon D12.3, Benign neoplasm of transverse colon (hepatic flexure or splenic flexure) K63.89, Other specified diseases of intestine K52.839, Microscopic colitis, unspecified CPT copyright 2021 [employer]. All rights reserved. The codes documented in this report are preliminary and upon breading machine tender review may be revised to meet current compliance requirements. Susan Kiran MD, 09/04/2023 9:13:12 AM This report has been signed electronically. Note Initiated On: 09/04/2023 7:47 AM Number of Addenda: [address] [address] [facility] 09/04/2023 7:47 AM CDT Susan Kiran MD GI PROCEDURE ORDERABLES Edited R esult - Final [facility] * (ABNORMAL) GLUCOSE - POINT OF CARE (09/04/2023 7:38 AM CDT) Glucose WB/POC 221(H) 70 - 115 mg/dL 09/04/2023 11:21 AM CDT [facility] Specimen Type Venous 09/04/2023 11:21 AM CDT [facility] Blood BLOOD SPECIMEN / Unknown 09/04/2023 7:38 AM CDT 09/04/2023 11:21 AM CDT Susan Kiran MD LAB - POINT OF CARE ORDERABLES F inal Result [place] [address] [place] [address], [facility] [phone] * MAMMO SCREENING DIGITAL IMAGE BILAT [id number] (04/25/2013 8:18 AM MEDICARE NURSE) Anatomical Region Laterality Modality Breast Bilateral Mammography 04/25/2013 2:43 PM MEDICARE NURSE Narrative 04/25/2013 2:59 PM MEDICARE NURSE DATE: 04/25/2013 DIGITAL BILATERAL SCREENING MAMMOGRAMS WITH [...] if suspicious findings are present clinically. An [employer]. [facility] utilizes [employer] as a reminder system to notify patients [...] if suspicious findings are present clinically. An [employer] Facility. [facility] utilizes [employer] as a reminder system to notify patients of their next recommended mammograms. Edited by Melissa Mccormick on 04/25/2013 2:54 PM Alonso Núñez MD MAMMO ORDERABLES Final Result from Last 3 Months or Most Recently Relevant to Health Maintenance Insurance [facility] Care Teams Clerical Aide Relationship Specialty Start Date End Date Yasmani Fela [address] [place] [address] PCP - General 10/06/23 Renard Hui MD Otolaryngology 02/05/11 Conor Russo MD [address] [facility] [facility] [address] [place] [address] Orthopedic Surgery 02/05/11 Deana Garza, grey goods tester 08/05/12
--- OUTSIDE RECORDS SUMMARY | 2025-02-07 11:39 | XMS_ITS | Encounter Summary ---
Author Organization [facility] Address [address] [place] [address] Care Team Providers Care Under Presser Name Role Phone Lorenza Thornton NP Primary Care Provider [phone] Palak Garber Primary Care Provider [phone] Encounter Details Date Type Department Care Team (Late st Contact Info) Description 10/31/2019 Hospital Follow-up Call [facility] [place] [address] Tessy Newsome RN Social History Tobacco Use [...] or ex-partner? No 10/24/2019 Social Connection and Isolation Panel Answer Date Recorded In a typical week, how many times do you talk on the phone with family, friends, or neighbors? More than three times a week 10/24/2019 How often do you get togethe r with friends or relatives? Once a week 10/24/2019 How often do you attend chur ch or congregational services? Never 10/24/2019 Do you belong to any clubs o r organizations such as islam groups, unions, fraternal or athletic groups, or [...] heating? Not hard at all 10/24/2019 [facility] [place] of Occupat ional Health - Occupational Stress [...] Status No 10/24/2019 9:55 PM CDT Saritha Fered RN Active * Because of a physical, mental, or emotional condition, do you have difficulty doing errands alone such as visiting a doctor's office or shopping? Answer Date of Assessment Author Status No 10/24/2019 9:55 PM CDT Saritha Freed RN Active documented as of [...] documented as of this encounter Care Teams Under Presser Relationship Specialty Start Date End Date Lorenza Thornton NP [address] [place] [address] PCP - General NURSE PRACTITIONER 10/25/19 08/23/22 Palak Garber PA [address] [place] [address] PCP - General PHYSICIAN INDUSTRIAL ANALYST 08/24/22 documented as of this encounter
--- OUTSIDE RECORDS SUMMARY | 2025-02-07 11:39 | XMS_ITS | Encounter Summary ---
Author Organization [facility] Address [address] [place] [address] Care Team Providers Care Independent Distributor Name Role Phone Lorenza Thornton NP Primary Care Provider [phone] Palak Garber Primary Care Provider [phone] Encounter Details Date Type Department Care Team (Late st Contact Info) Description 11/09/2019 Hospital Follow-up Call [facility] Telemetry Unit B [address] [place] [address] Alida Harper, RN Social History Tobacco Use [...] often do you attend chur ch or sabianist services? Never 10/24/2019 Do you belong to any clubs o r organizations such as taoism groups, unions, fraternal or athletic groups, or [...] and heating? Not hard at all 10/24/2019 [facility] [place] of Occupat ional Health - Occupational Stress [...] documented as of this encounter Care Teams Independent Distributor Relationship Specialty Start Date End Date Lorenza Thornton NP [address] [place] [address] PCP - General NURSE PRACTITIONER 10/25/19 08/23/22 Palak Garber PA [address] [place], [place] [address] [address] PCP - General PHYSICIAN HEAD WAITRESS 08/24/22 documented as of this encounter
--- OUTSIDE RECORDS SUMMARY | 2025-02-07 11:39 | XMS_ITS | Clinical Summary ---
Author Organization [facility] Address [facility] [place] [address] Care Team Providers Care Gasoline Truck Crane Operator Name Role Phone Palak Garber Primary Care Provider [phone] Allergies No known active allergies Medications albuterol [...] Date Diagnosed Date Resolved Date Intra-abdominal abscess 11/03/201910/25 Family History Medical History Relation Comments Heart [...] 10/24/2019 How often do you attend chur or scientologist services? Never 10/24/2019 Do you belong to any clubs o r organizations such as restorationism groups, unions, fraternal or athletic groups, or [...] and heating? Not hard at all 10/24/2019 [facility] [place] of Occupat ional Health - Occupational Stress [...] 1:36 PM CDT Height 170.2 cm (5' 7) 2022 1:36 PM CDT Body Mass Index 30.49 2022 1:36 PM CDT Plan of Treatment Health Maintenance Due Date Last Done Comments Cervical Cancer Screening Pa p Smear (Age 30 to 64) Every 3 Years 1965 Colorectal Cancer Screening Colonoscopy (10 Years) 1965 Annual Physical 1968 Hepatitis C 08/25/1983 Cervical Cancer Screening Pa p with HPV Testing (Age 30 to 64) Every 5 Years 08/25/1995 Cervical Cancer Screening wi th HPV 08/25/1995 Mammogram Screening 2005 Pneumococcal Vaccine: 50+ Years (1 of 1 - PCV) 08/25/2015 Zoster Vaccines (1 of 2) 08/25/2015 COVID-19 Vaccine (3 2024-2 6 season) 2024 09/10/2020, 08/20/2020 Influenza Adult (#1) 2025 DTaP, Tdap and Td Vaccines ( 3 [...] this topic Medical Devices Implanted Type Area Export Clerk Device Identifier Shelf Expiration Date Model / Serial / Lot Advanix Biliary Implanted:Qty: 1 on 10/25/2019 by Adam Alexander MD at [facility] N/A: Bile Duct 05/09/2021 / REF [id number] / [id number] Insurance MEDICAID Advance Directives * Full Code (Latest Code [...] 8:42 PM 10/28/2019 5:06 PM Care Teams Gasoline Truck Crane Operator Relationship Specialty Start Date End Date Palak Garber PA [address] [place] [address] PCP - General PHYSICIAN MITER GRINDER OPERATOR 08/24/22
[2025-02-07 19:10] LABS: Alanine Aminotransferase 28 U/L (6-35); Albumin Level 5.1 g/dL (3.5-5.1); Alkaline Phosphatase 109 U/L (38-126); Anion Gap 15 mmol/L (4-12); Aspartate Amino Transferase 43 U/L (14-36); Bilirubin,Total 0.8 mg/dL (0.2-1.3); Blood Urea Nitrogen 14 mg/dL (7-17); Calcium 9.8 mg/dL (8.4-10.2); Carbon Dioxide 22 mmol/L (22-30); Chloride 97 mmol/L (98-107); Cholesterol 205 mg/dL (0-200); Estimated Glomerular Filt Rate > 60; Glucose 268 mg/dL (65-110); HDL Direct 42 mg/dL; Potassium 3.4 mmol/L (3.4-5.0); Sodium 134 mmol/L (137-145); Total Protein 8.5 g/dL (6.3-8.2); Triglycerides 433 mg/dL (<150)
[2025-02-07 19:14] LABS: MALB Creatinine Ratio 31.5 mg/g (0-30)
[2025-02-07 19:17] LABS: Hemoglobin A1C 10.5 % (<5.7)
[2025-02-07 20:05] LABS: Vitamin B12 913.0 pg/mL (239-931)
== END 2025-02-07 10:07 | disposition home or self-care (01) ==
PROVIDERS: PCP Nurse Practitioner Adult Health; Visit Provider Nurse Practitioner Adult Health
DX: E11.9 Type 2 diabetes mellitus without complications (principal); Z51.81 Encounter for therapeutic drug level monitoring
CPT/HCPCS: 36415; 80053; 80061; 82043; 82565; 82607; 83036

== ENCOUNTER 2025-02-17 07:43 | Outpatient (CLI) | payer OTHER, SELFPAY | END 2025-02-17 07:44 | disposition home or self-care (01) | LOC: ANHAUDIO 07:43 | PROVIDERS: PCP Nurse Practitioner Adult Health; Visit Provider Nurse Practitioner Adult Health | DX: H66.93 Otitis media, unspecified, bilateral (principal); H83.09 Labyrinthitis, unspecified ear; H90.6 Mixed conductive and sensorineural hearing loss, bilateral; H73.892 Other specified disorders of tympanic membrane, left ear; Z97.4 Presence of external hearing-aid | CPT/HCPCS: 92557; 92567 ==

== ENCOUNTER 2025-02-17 12:36 | Outpatient (NON) | payer OTHER, SELFPAY ==
--- OUTSIDE RECORDS SUMMARY | 2025-02-17 12:40 | XMS_ITS | Encounter Summary ---
Author Organization [facility] Address [address] [place] [address] Care Team Providers Care Transformer Inspector Name Role Phone Lorenza Thornton NP Primary Care Provider [phone] Palak Garber Primary Care Provider [phone] Encounter Details Date Type Department Care Team (Late st Contact Info) Description 11/09/2019 Hospital Follow-up Call [facility] Telemetry Unit B [address] [facility] [place] [address] Alida Harper, RN Social History Tobacco Use [...] often do you attend chur ch or catholic services? Never 10/24/2019 Do you belong to any clubs o r organizations such as uatsdin groups, unions, fraternal or athletic groups, or [...] and heating? Not hard at all 10/24/2019 [facility] [place] of Occupat ional Health - Occupational Stress [...] documented as of this encounter Care Teams Transformer Inspector Relationship Specialty Start Date End Date Lorenza Thornton NP [address] [place] [address] PCP - General NURSE PRACTITIONER 10/25/19 08/23/22 Palak Garber PA [address] [place], [place] [address] [address] PCP - General PHYSICIAN HEEL SORTER 08/24/22 documented as of this encounter
--- OUTSIDE RECORDS SUMMARY | 2025-02-17 12:40 | XMS_ITS | Clinical Summary ---
Author Organization [facility] Address [facility] [place] [address] Care Team Providers Care Beam Saw Operator Name Role Phone Palak Garber Primary Care Provider [phone] Allergies No known active allergies Medications albuterol [...] How often do you attend chur or yazidi services? Never 10/24/2019 Do you belong to any clubs o r organizations such as congregation groups, unions, fraternal or athletic groups, or [...] and heating? Not hard at all 10/24/2019 [facility] [place] of Occupat ional Health - Occupational Stress [...] Td or Tdap) 10/20/2027 10/19/2017, 04/27/2009, 01/28/2009 Hepatitis A Vaccines Aged Out No long er eligible based on patient's age to complete this topic Meningococcal B Vaccine Aged Out No l onger eligible based on patient's age to complete this topic Meningococcal Vaccine Aged Out No italo elroy eligible based on patient's age to complete this topic RSV Immunizations Under 20 Months Aged Out No longer eligible b ased on patient's age to complete this topic Medical Devices Implanted Type Area Continuous Crusher Operator Device Identifier Shelf Expiration Date Model / Serial / Lot Advanix Biliary Implanted:Qty: 1 on 10/25/2019 by Adam Alexander MD at [facility] N/A: Bile Duct 05/09/2021 / REF [id number] / [id number] Insurance MEDICAID Advance Directives * Full Code [...] 8:42 PM 10/28/2019 5:06 PM Care Teams Beam Saw Operator Relationship Specialty Start Date End Date Palak Garber PA [address] [place] [address] PCP - General PHYSICIAN ASSEMBLY PERSON 08/24/22
--- OUTSIDE RECORDS SUMMARY | 2025-02-17 12:40 | XMS_ITS | Encounter Summary ---
Author Organization [facility] Address [address] [place] [address] Care Team Providers Care Beekeeper Name Role Phone Lorenza Thornton NP Primary Care Provider [phone] Palak Garber Primary Care Provider [phone] Encounter Details Date Type Department Care Team (Late st Contact Info) Description 10/31/2019 Hospital Follow-up Call [facility] [place] [address] Tessy Newsome RN Social History Tobacco Use [...] often do you attend chur ch or yarsani services? Never 10/24/2019 Do you belong to any clubs o r organizations such as congregational groups, unions, fraternal or athletic groups, or [...] and heating? Not hard at all 10/24/2019 [facility] [place] of Occupat ional Health - Occupational Stress [...] 6:40 PM CDT Hiro Aleman RN Act aprish * RETIRED Are you deaf or do [...] documented as of this encounter Care Teams Beekeeper Relationship Specialty Start Date End Date Lorenza Thornton NP [address] [place] [address] PCP - General NURSE PRACTITIONER 10/25/19 08/23/22 Palak Garber PA [address] [place] [address] PCP - General PHYSICIAN SR VICE PRESIDENT 08/24/22 documented as of this encounter
--- OUTSIDE RECORDS SUMMARY | 2025-02-17 12:41 | XMS_ITS | Clinical Summary ---
Author Organization [facility] Address [address] [place] [address] Phone Care Team Providers Care Rehab Services Aide Name Role Phone Lorenza Thornton APRN Primary Care Provider [phone] Lenin Porter APRN, DESIGN LEADER Unavailable [phone] Allergies No known active allergies Medications traMADol [...] Comments Blood Pressure 151/96 06/21/2024 1:57 PM FRAME REPAIRER Pulse 92 06/21/2024 1:57 PM FRAME REPAIRER Temperature 36 C (96.8 F) 01/12/2019 12:24 PM CDT Respiratory Rate 18 06/21/2024 1:57 PM FRAME REPAIRER Oxygen Saturation 96% 06/21/2024 1:57 PM FRAME REPAIRER Inhaled Oxygen Concentration - - Weight 89.4 kg (197 lb) 06/21/2024 1:57 PM FRAME REPAIRER Height 170.2 cm (5' 7) 06/21/2024 1:57 PM FRAME REPAIRER Body Mass Index 30.85 06/21/2024 1:57 PM FRAME REPAIRER Plan of Treatment Upcoming Encounters Date Type Department Care Team (Late st Contact Info) Description 06/27/2025 10:00 AM FRAME REPAIRER Office Visit [facility] [place] [address] Lenin Porter, GUN WELDER, DESIGN LEADER [address] [place] [address] Health Maintenance Due Date Last Done Comments [...] Insurance MEDICAID [place] Care Teams Rehab Services Aide Relationship Specialty Start Date End Date Lorenza Thornton APRN PCP - General Advanced Practice Nurse 11/18/18 Lenin Porter APRN, DESIGN LEADER [address] [place] [address] Nurse Practitioner Advanced Practice Nurse 02/16/23
--- OUTSIDE RECORDS SUMMARY | 2025-02-17 12:41 | XMS_ITS | Encounter Summary ---
Author Organization [facility] Address [address] [place] [address] Phone Care Team Providers Care Software Database Architect Name Role Phone Lroenza Thornton APRN Primary Care Provider [phone] Lenin Porter APRN, SHIPPING AND RECEIVING SPECIALIST Unavailable [phone] Reason for Visit * Reason Comments Medication Refill Encounter Details Date Type Department Care Team (Late st Contact Info) Description 06/08/2023 Refill [facility] [address] [place] [address] Lenin Porter APRN, SHIPPING AND RECEIVING SPECIALIST [address] [place] [address] Medication Refill Social History Tobacco Use Types [...] 02/16/23 Office Visit Lenin Porter APRN, CNP [facility] Showing recent visits within past 365 days and meeting all other requirements Future Appointments Date Type Provider Dept 06/23/23 Appointment Lenin Porter APRN, CNP [facility] Showing future appointments within next 90 days and meeting all other requirements ICAL AND ADMINISTRATIVE WORKERS documented in this encounter Plan of Treatment Upcoming Encounters Date Type Department Care Team (Late st Contact Info) Description 06/27/2025 10:00 AM CLERICAL AND ADMINISTRATIVE WORKERS Office Visit [facility] [address] [place] [address] Lenin Porter APRN, SHIPPING AND RECEIVING SPECIALIST [address] [place] [address] documented as of this encounter Visit Diagnoses Diagnosis Urinary frequency Urinary urgency Urgency of urination Urinary incontinence, urge Urge incontinence documented in this encounter Care Teams Software Database Architect Relationship Specialty Start Date End Date Lorenza Thornton APRN PCP - General Advanced Practice Nurse 11/18/18 Lenin Porter APRN, SHIPPING AND RECEIVING SPECIALIST [address] [place] [address] Nurse Practitioner Advanced Practice Nurse 02/16/23 documented as of this encounter
--- OUTSIDE RECORDS SUMMARY | 2025-02-17 12:41 | XMS_ITS | Clinical Summary ---
Author Organization [facility] Address [address] [place] [address] Care Team Providers Care Cardiopulmonary Physical Therapist Name Role Phone Renard Hui MD Unavailable [phone] Conor Russo MD Unavailable [phone] Deana Garza RN Unavailable Unavailable Fela Gruber Primary Care Provider [phone] Source Comments [facility],non-owned Affiliates and Associated Physician Practices is amultiple site organization consisting of ambulatory clinics and hospital sitesin [place], [place], [place] and [place]. This disclosure is being madepursuant to the Care Everywhere program and may not contain all information available regarding this patient. Last updated 18.[facility] Allergies No known active allergies Medications * [...] Description 12/12/2024 10:30 AM CDT Office Visit [facility] [address] [place] [address] Marlene Das, ELIZABETH-FERNANDEZ Irritable bowel syndrome with diarrhea (Primary Dx); Diarrhea, unspecified type; Abdominal pain, unspecified abdominal location; Nausea; Controlled type 2 diabetes mellitus without complication, unspecified whether halfway insulin use (HCC) 12/12/2024 Travel from Last 3 Months Immunizations Immunization [...] on file Legal Sex Female 12:14 PM ASSISTANT CENTER MANAGER Gender Identity Not on file Sexual Orientation [...] st Contact Info) Description 06/14/2025 10:30 AM ASSISTANT CENTER MANAGER Office Visit [facility] [address] [place] [address] Mg-Marlene Angelo, HOP WEIGHER-PHARMACOLOGIST [address] [place] [address] Health Maintenance Due Date Last Done Comments [...] On track( 025 10:23 AM CDT) Tiana Webster, RN Note: Expected end date: ongoing Interventions: Take all medications as prescribed Let your doctor know right away about any changes in your medications Make sure to request a refill of your medication at least one week prior to your last dose Procedures Procedure Name Priority Date/Time Associated Diagnosis Comments ENDOSCOPY, COLON, DIAGNOSTIC Routine 09/04/2023 7:47 AM CDT GLUCOSE - POINT OF CARE Routine 09/04/2023 7:38 AM CDT MAMMO BILAT SCREENING Routine 04/25/2013 8:18 AM ASSISTANT CENTER MANAGER Other screening mammogram from Last 3 Months or Most Recently Relevant to Health Maintenance Results * ENDOSCOPY, COLON, DIAGNOSTIC (09/04/2023 7:47 AM [...] and oxygen saturations were monitored continuously. The CF-CS427I was introduced through the anus and advanced to the cecum, identified by appendiceal orifice and ileocecal valve. The colonoscopy was performed without difficulty. The patient tolerated the procedure well. Scope insertion time was 6 minutes. Scope withdrawal time was 41 minutes. The quality of the bowel preparation was evaluated using the BBPS ([place] Bowel Preparation Scale). The total BBPS score equals 9. To enhance insepction, Endocuff distal attachment was used. GI-Genius (Fotolog) was used to assist in polyp detection. [...] entire procedure. Procedure Code(s): --- Professional --- 39138, Colonoscopy, flexible; with removal of tumor(s), polyp(s), or other lesion(s) by snare technique 88666, 59, Colonoscopy, flexible; with biopsy, single or multiple Diagnosis Code(s): --- Professional --- D12.2, Benign neoplasm of ascending colon D12.3, Benign neoplasm of transverse colon (hepatic flexure or splenic flexure) K63.89, Other specified diseases of intestine K52.839, Microscopic colitis, unspecified CPT copyright 2021 [employer]. All rights reserved. The codes documented in this report are preliminary and upon rug weaver review may be revised to meet current compliance requirements. Susan Kiran MD, 09/04/2023 9:13:12 AM This report has been signed electronically. Note Initiated On: 09/04/2023 7:47 AM Number of Addenda: [address] [address] [facility] 09/04/2023 7:47 AM CDT us Susan Kiran MD GI PROCEDURE ORDERABLES Edited R esult - Final Performing Organization Address [facility] Co de Phone Number [facility] * (ABNORMAL) GLUCOSE - POINT OF CARE (09/04/2023 7:38 AM CDT) Glucose WB/POC 221(H) 70 - 115 mg/dL 09/04/2023 11:21 AM CDT [facility] Specimen Type Venous 09/04/2023 11:21 AM CDT [facility] Blood BLOOD SPECIMEN / Unknown 09/04/2023 7:38 AM CDT 09/04/2023 11:21 AM CDT us Susan Kiran MD LAB - POINT OF CARE ORDERABLES F inal Result Performing Organization Address City/[facility]/ZIP Co de Phone Number [address] [address], [facility] [phone] * MAMMO SCREENING DIGITAL IMAGE BILAT G0202 (04/25/2013 8:18 AM ASSISTANT CENTER MANAGER) Anatomical Region Laterality Modality Breast Bilateral Mammography 04/25/2013 2:43 PM ASSISTANT CENTER MANAGER Narrative 04/25/2013 2:59 PM ASSISTANT CENTER MANAGER DATE: 04/25/2013 DIGITAL BILATERAL SCREENING MAMMOGRAMS WITH [...] if suspicious findings are present clinically. An [employer]. [facility] utilizes EPIC as a reminder system to notify patients [...] if suspicious findings are present clinically. An [employer]. [facility] utilizes [employer] as a reminder system to notify patients of their next recommended mammograms. Edited by Melissa Mccormick on 04/25/2013 2:54 PM Alonso Núñez MD MAMMO ORDERABLES Final Result from Last 3 Months or Most Recently Relevant to Health Maintenance Insurance [facility] [id number] [place] [address] Care Teams Cardiopulmonary Physical Therapist Relationship Specialty Start Date End Date Fela Gruber [address] [place] [address] PCP - General 10/06/23 Renard Hui MD Otolaryngology 02/05/11 Conor Russo MD [address] [facility] [address] [place] [address] Orthopedic Surgery 02/05/11 Deana Garza RN Care Manager 08/05/12
== END 2025-02-17 12:37 | disposition home or self-care (01) ==
LOC: ANHGOSHLAB 12:37
PROVIDERS: PCP Nurse Practitioner Adult Health; Visit Provider Otolaryngology
DX: H90.6 Mixed conductive and sensorineural hearing loss, bilateral (principal); Z97.4 Presence of external hearing-aid; H74.02 Tympanosclerosis, left ear; H70.12 Chronic mastoiditis, left ear; R42 Dizziness and giddiness
CPT/HCPCS: 87070; 87186; 87205

== ENCOUNTER 2025-03-06 12:49 | Outpatient (CLI) | payer OTHER, SELFPAY ==
--- OUTSIDE RECORDS SUMMARY | 2025-03-06 09:00 | XMS_ITS | Encounter Summary ---
Author Organization [facility] Address [address] [place] [address] Care Team Providers Care Home Health Provider Name Role Phone Renard Hui MD Unavailable [phone] Conor Russo MD Unavailable [phone] Deana Garza RN Unavailable Unavailable Lorenza Thornton Primary Care Provider + Reason for Referral * Radiology Services (Routine) - Open Specialty Diagnoses / Procedures Referred By Diana mcclelland Referred To Contact Diagnoses Nausea Procedures NM Gastric Emptying Marlene Das APRN-CNP [address] [place] [address] Phone: tel: fax: Referral ID Status Reason Start Date Expiration Date Visits Re quested Visits Authorized [id number] Open 03/06/2025 03/06/2026 1 1 TRIMMER Reason for Visit * Reason Comments IBS Diarrhea Encounter Details Date Type Department Care Team (Late st Contact Info) Description 03/06/2025 9:00 AM SEAT TRIMMER Office Visit [facility] [place] [address] Marlene Das APRN-CNP [address] [place] [address] Irritable bowel syndrome with diarrhea (Primary Dx); Nausea; Nonalcoholic fatty liver disease; Diarrhea, unspecified type Social History Tobacco Use Types Packs/Day Years Used Date Smoking Tobacco: Former Cigarettes 0.5 25 1 2021 Passive Smoke Exposure: Never Smokeless Tobacco: Never Alcohol Use Standard Drinks/Week Comments No 0 (1 standard drink = 0.6 oz pur e alcohol) Comments No Sex and Gender Information Value Date Recorded Sex Assigned at Not on file Legal Sex Female 12:14 PM SEAT TRIMMER Gender Identity Not on file Sexual Orientation Not on file documented as of this encounter Last Filed Vital Signs Vital Sign Reading Time Taken Comments Blood Pressure 143/86 03/06/2025 8:51 AM SEAT TRIMMER Pulse 94 03/06/2025 8:51 AM SEAT TRIMMER Temperature - - Respiratory Rate - - Oxygen Saturation - - Inhaled Oxygen Concentration - - Weight 83.6 kg (184 lb 3.2 oz) 03/06/2025 8:51 A M SEAT TRIMMER Height - - Body Mass Index 28.85 12/12/2024 10:30 AM CDT documented in this encounter Functional Status * Is person deaf or have serious hearing difficulty? Answer Date of Assessment Author Yes 09/04/2023 9:18 AM CDT Julia Richardson RN * Is person blind or have serious difficulty seeing? Answer Date of Assessment Author No 09/04/2023 9:18 AM CDT Julia Richardson RN * Does person have serious difficulty walking/climbing stairs? Answer Date of Assessment Author No 09/04/2023 9:18 AM CDT Julia Richardsno RN * Does person have difficulty dressing/bathing? Answer Date of Assessment Author No 09/04/2023 9:18 AM CDT Julia Richardson RN * Does person have difficulty doing errands alone? Answer Date of Assessment Author No 09/04/2023 9:18 AM CDT Julia Richardson RN documented as of this encounter Mental Status * Does person have difficulty concentrating/remembering/making decisions? Answer Entry Date Author No 09/04/2023 9:18 AM CDT Julia Richardson RN documented in this encounter Patient Instructions * Patient Instructions* Marlene Das APRN-CNP - 03/06/2025 9:20 AM SEAT TRIMMER Thank you for choosing [facility] GI clinic. It was a pleasure meeting with you today. The following is information we discussed during your visit. If you have any additional questions or concerns please contact us through [employer] or our office. Recs for stool studies given to you this office visit, please complete as soon as you are able Gastric emptying study ordered to rule out gastroparesis Start amitriptyline 10mg po QHS TRIMMER TRIMMER documented in this encounter Progress Notes * Marlene Das APRN-CNP - 03/06/2025 8:56 AM CST Images from the original note were not included. Gastroenterology Clinic Follow Up Visit Today's date: 03/06/25 Last visit: 12/12/2024 Subject Interval Events Savanah Walker is a 59 year old female with a history of HTN, HLD, Menier's disease, anxiety, DM andcholelithiasis s/p CCK c/b bile leak s/p ERCP who presents for chronic diarrhea follow up. Interim history: Patient no longer on trulicity (second trial) or insulin for diabetes management due to patient reported GI side effects. Prior failed trials of mounjaro and ozempic due to multiple patient reported side effects. Patient again tearful during office visit. She continues to have diarrheal stools. Currently, patient reporting average of 5-12 non-bloody, bristol 7 bowel movements daily. Reports fecal urgency, incontinence and intermittent nocturnal symptoms. Took Ibguard and Imodium without symptom relief. Hyoscyamine prn for abdominal cramping/diarrhea with partial symptom relief. Continues to have intermittent nausea without vomiting relieved with prn zofran. Continues to take daily low dose PPI therapy. KANDY 12/12/2024: Negative c-diff and stool panel culture 11/08/2024. Pancreatic elastase false positive due to watery stool sample. Patient no longer on trulicity for diabetes management due to GI side effects. Prior failed trials of mounjaro and ozempic due to multiple patient reported side effects. Patient tearful during office visit. She continues to have diarrheal stools. Currently, patient reporting average of 5-6 non-bloody, bristol 7 bowel movements daily. Reports fecal urgency and intermittent nocturnal symptoms. Denies fecal incontinence. Patient reports trial of cholestyramine for suspected bile acid diarrhea did not improve symptoms therefore she discontinued use. Imodium with minimal symptom improvement. Hyoscyamine prn for abdominal cramping/diarrhea with partial symptom relief. Continues to have intermittent nausea without vomiting relieved with prn zofran. Continues to take daily low dose PPI therapy. Post prandial abdominal bloating has significantly improved since last office visit, patient attributes this to better diabetic diet compliance. OV 03/14/2024: Patient with positive c-diff 11/2023. Treated with fidaxomicin 200mg PO BID for 10 days. Patient reported return of symptoms 12/2023, repeat c-diff was negative. Patient with history of positive dual hydrogen/methane breath test treated with course of Augmenting with Neomycin without symptom improvement. Initially insurance denied treatment with Xifaxan, however on the letter of denial it stated that it would be approved for treatment of IBS, therefore medication was reordered during last office visit, unfortunately after treatment with Xifaxan her symptoms did not improve. Patient tearful during office visit, she became more emotional after reviewing her CT results that did not demonstrate spleen enlargement as she believed. She continues to average of 6-10 watery, non-bloody bowel movements daily. Has fecal urgency with every bowel movement, nightly nocturnal symptoms and rare fecal incontinence. Chronic abdominal pain and bloating that worsens with po intake has not improved with dietary modifications or most recent treatment with Xifaxan course for IBS/SIBO. No unintentional weight loss, reporting early satiety and intermittent nausea without vomiting. We re-discussed how taking Trulicity may be a contributing factor for some of her GI complaints. OV 12/07/2023 Positive dual hydrogen/methane breath test 08/2023 S/p dual treatment initially with Augmentin BID x 10 days with Neomycin course added for Methanogenovergrowth. Patient reports no significant symptom improvement post abx therapy. Patient did contact office complaining of increased diarrhea after completing abx. Division Manager ordered c-diff study 10/26/2023 that has not been completed, patient said she was not aware that it was ordered. Currently, patient is very tearful. Says that her daughter is a nurse and thinks she is making her symptoms up. Tells me that she has not been able to work due to constant diarrhea. Reports average of 6-10 watery, non-bloody bowel movements daily (pictures were presented to radio news writer). Has fecal urgency with every bowel movement, nightly nocturnal symptoms and rare fecal incontinence. Patient now taking Trulicity for uncontrolled dm No longer taking NSAIDs OV 09/07/2023 Mother's cousin has Crohn's disease. No FH of CRC. Most recent workup: Negative infectious workup Negative Celiac disease. Colonoscopy 07/17/23: -One 4 mm polyp in the cecum, removed with a cold snare. Resected and retrieved. - External hemorrhoids. - The ICV and the very distal end of distal ileum appeared normal. The colonic examination was otherwise normal. Random biopsies were obtained to rule out microscopic colitis Large intestine, cecal polyp x 1, biopsy (A): - Inflammatory polyp Large intestine, random colon, biopsy (B): - Focal low grade adenomatous dysplasia - Superficial reactive changes - No lymphocytic or collagenous colitis Therefore, patient underwent repeat colonoscopy with chromoendoscopy on 09/04/23: - Chromoscopy was performed in the entire [...] and rectum for evaluation of microscopic colitis. Path: No lymphocytic or collagenous colitis. Two TA(s) large colon Social history - tobacco - former - etoh - denies - illicit drugs - denies Prior office visit 03/23/2023 Had EGD in 02/2022 which was normal and colonoscopy which endoscopically was normal but biopsies were positive for lymphocytic colitis. These procedures were done due to chronic diarrhea and elevatedfecal calprotectin to 568. After this procedure she was given budesonide but despite this, she continues to have diarrhea. Over the last 14 years she has dealt with abdominal pain, cramping, bloating, distention and diarrhea. Her major complaints are the abdominal pain/cramping as well as diarrhea Abdominal pain - sharp in character and significant discomfort. Usually will wake up with a flat abdomen, but after she eats, she will have significant abdominal bloating and distention. After eatingshe will have significant abdominal distention. Diarrhea - can go to the bathroom anywhere from 6-15 times a day. Every time, she will have diarrhea, and sometimes she reports that her stools look like the food that she ate. Sometimes will see blood in the toilet 2-3 times a week. Took 10 pills of imodium a day without any relief. She has previously had c diff infections (Apr 18, 2020 and May 16, 2020) She has had extensive stool studies done at [facility] Takes hyoscyamine for cramping which she thinks help as she takes it before going to bed Appetite is ok, has had weight gain over the last 3 weeks, she went from 189 -> 206 She only gets nausea/vomiting when she gets vertigo (in the setting of her Meniere's disease) Denies any dysphagia, odynophagia, heartburn Reports that she has issues with salads and green leafy vegetables. She has had 2 colonoscopies since 2018 - one at [facility] and one at [facility] Review of Systems (Positives in Bold) General: fever, chills, fatigue, weight loss or gain. HEENT: acute changes in vision or hearing Respiratory: shortness of breath, cough, sputum production, hemoptysis Cardiovascular: chest pain, palpitations, orthopnea Gastrointestinal: as per HPI Genitourinary: dysuria, hematuria, incontinence MSK: extremity edema, myalgia. Neuro: dizziness, headache, seizures Hematology: easy bruising, bleeding Skin: new skin rashes or lesions. Medications Current Outpatient Medications on File Prior to Visit Medication Sig Dispense Refill albuterol HFA (VENTOLIN HFA) 108 (90 BASE) MCG/ACT inhaler Inhale 2 Puffs by mouth every 6 hours asneeded. 1 Inhaler 5 atorvastatin (LIPITOR) 40 MG tablet Take 1 (one) tablet by mouth at bedtime budesonide-formoterol (SYMBICORT) 160-4.5 MCG/ACT inhaler Inhale 2 (two) puffs by mouth 2 times daily [DISCONTINUED] chlorthalidone (HYGROTON) 25 MG tablet Take 1 Tab by mouth once daily. 90 Tab 0 ciprofloxacin-dexamethasone (CIPRODEX) 0.3-0.1 % otic suspension 4 (four) drops 2 times daily [place] before using. clonazePAM (KLONOPIN) 0.5 MG tablet Take 2 (two) tablets by mouth 3 times daily colestipol (Colestid) 1 GM tablet Take 1 (one) tablet by mouth once daily 90 tablet 0 cyclobenzaprine (Flexeril) 10 MG tablet Take 1 (one) tablet by mouth 3 times daily as needed for Muscle Spasms Duloxetine (CYMBALTA) 60 MG capsule Take 1 (one) capsule by mouth once daily enalapril (VASOTEC) 10 MG tablet once daily Gemtesa 75 MG tablet Take 1 (one) tablet by mouth once daily glimepiride (Amaryl) 2 MG tablet Take 1 (one) tablet by mouth daily with breakfast hyoscyamine (Levsin) 0.125 MG IR tablet Take 1 (one) tablet by mouth every 4 hours as needed for Spasms Jardiance 25 MG tablet Take 1 (one) tablet by mouth once daily meclizine (ANTIVERT) 25 MG tablet Take 1 Tab by mouth 3 times daily as needed for Dizziness. 30 Tab0 Multiple Vitamin (MULTI-VITAMIN) TABS Take 1 (one) tablet by mouth once daily neomycin (Mycifradin) 500 MG tablet Take 1 (one) tablet by mouth 2 times daily 28 tablet 0 VBVAEXTG-YFWNNOEPU-YZ, OTIC, 1 % SOLN by Otic route. 4 drops in the right ear omeprazole (PriLOSEC) 20 MG capsule Take 1 (one) capsule by mouth daily before breakfast traMADol (ULTRAM) 50 MG tablet Take 1-2 Tabs by mouth every 6 hours as needed. 120 Tab 0 traZODone (DESYREL) 150 MG tablet Take 1 (one) tablet by mouth at bedtime No current facility-administered medications on file prior to visit. Social History Social History Tobacco Use Smoking status: Former Current packs/day: 0.00 Average packs/day: 0.5 packs/day for 25.0 years (12.5 ttl pk-yrs) Types: Cigarettes Start date: 1996 Quit date: 2021 Years since quittin.8 Passive exposure: Never Smokeless tobacco: Never Vaping Use Vaping status: Never Used Substance Use Topics Alcohol use: No Drug use: No No changes since last clinic visit. Family History family history includes Asthma in her mother; Heart Failure in her mother. No changes since last clinic visit. Allergies No Known Allergies Physical Exam BP 143/86 (BP Location: Left arm, Patient Position: Sitting, BP Cuff Size: Adult long) Pulse 94 Wt 83.6 kg (184 lb 3.2 oz) Wt Readings from Last 6 Encounters: 03/06/25 83.6 kg (184 lb 3.2 oz) 12/12/24 84.2 kg (185 lb 9.6 oz) 03/14/24 90.3 kg (199 lb) 12/07/23 90.5 kg (199 lb 9.6 oz) 09/07/23 91.2 kg (201 lb) 09/04/23 91.2 kg (201 lb) General: pleasant, no distress HEENT: conjunctivae/corneas clear. Lungs: No respiratory distress Abdomen: soft, non-tender, non-distended Rectal: deferred Extremities: no edema Neuro: alert, cooperative Objective Labs CBC: Recent Labs Component Name 03/23/23 1550 12/30/19 0803 WBC 10.1 11.0* RBC 4.95 4.71 HGB 13.7 13.0 HCT 40.8 39.4 BMP: Recent Labs Component Name 03/23/23 1550 12/30/19 0803 NA 140 140 CL 102 104 CO2 26 28 BUN 18 18 CREATININE 0.69 0.[address]CIUM 9[address] ABDOMEN PELVIS W CONTRAST Result Date: 04/02/2023 Impression: 1.No acute process identified in the abdomen or pelvis. 2.Status post cholecystectomy. > Dictated by Mohamud Fuller MD (residential carpet installer). > Dictated by Mohamud Fuller MD (RadiologyResident) 04/02/2023 3:28 PM IAntonio MD have personally reviewed and interpreted this examination/study. > Interpreting Provider: Antonio Merritt MD on 04/02/2023 11:13 PM Fibroscan Date of Exam: 06/21/2024 Liver Stiffness: (LSM, kPa) median: 4.7 IQR/Median% (ideally < 30%): 16% CAP (controlled attenuation parameter): 355 Technical Difficulty: None Fibroscan interpretation: The calculated Liver Stiffness Measurement (LSM, kPa) indicates that: The probability of advanced liver fibrosis is: low. Procedures: Colonoscopy 09/04/2023 Impression: - Chromoscopy was performed in the [...] and rectum for evaluation of microscopic colitis. Final Diagnosis Large intestine, cecum polyp, biopsy (A): - Benign polypoid mucosa Large intestine, ascending colon polyps, biopsy (B): - Tubular adenoma(s), fragmented Large intestine, cecum random, biopsy (C): - Superficial reactive changes - No lymphocytic or collagenous colitis Large intestine, ascending random, biopsy (D): - Superficial reactive changes - No lymphocytic or collagenous colitis Large intestine, transverse colon polyps, biopsy (E): - Tubular adenoma(s), fragmented Large intestine, transverse colon random, biopsy (F): - Superficial reactive changes - No lymphocytic or collagenous colitis Large intestine, left colon random, biopsy (G): - Superficial reactive changes - No lymphocytic or collagenous colitis Large intestine, random rectum, biopsy (H): - Superficial reactive changes - No lymphocytic or collagenous colitis EGD 03/10/22 The esophagus was examined and no abnormalities were seen. The gastroesophageal junction was located 40 cm from the incisors The stomach was examined and no abnormalities were seen The duodenum was examined and no abnormalities were seen Colonoscopy 03/10/22 The colon was examined and no abnormalities were seen Pathology: Lymphocytic colitis 09/18/2023 Breath test Assessment and recommendations: Savanah Walker is a 58 year old female with a PMH significant for HTN, HLD, Menier's disease, DM, anxiety and cholelithiasis s/p CCK c/b bile leak who presents for follow up of chronic diarrhea. #Chronic diarrhea/IBS-D with global symptoms #History of lymphocytic colitis Had a colonoscopy in 02/2022 which endoscopically appeared normal, however pathology revealed lymphocytic colitis in the setting of NSAID use. She reports that she took budesonide, however was not sure of the dose or duration of treatment. Labs negative for Celiac disease and infectious diarrhea (FCP mildly positive but non-specific and colonoscopy was negative (as above) Trial of budesonide didn't help with her symptoms, and recent colonoscopy didn't show pathological findings of MC. A diagnosis of exclusion would include IBS-D, however she is already on cymbalta which would help with neuromodulation in this case. Colonic dysplasia: initial colonoscopy on 07/18 demonstrated the colonic dysplasia on random biopsies done for evaluation of microscopic colitis. Colonoscopy with chromo was done on 09/04/23 and path No lymphocytic or collagenous colitis. Two TA(s) large colon Patient with positive c-diff 11/2023. Treated with fidaxomicin 200mg PO BID for 10 days. Patient reported return of symptoms 12/2023, repeat c-diff was negative. Prior trial Cholestyramine for a possible bile acid diarrhea without symptom improvement Negative c-diff and stool panel culture 11/08/2024. Pancreatic elastase false positive due to watery stool sample. Trial of Ibgard without symptom relief -check stool studies to rule out overlying infectious etiology -Recommend retrial of over the counter IBgard capsules prn to help manage a combination of symptoms, including cramping, diarrhea, bloating, bowel urgency, constipation and gas. -continue hyoscyamine every four hours prn for abdominal cramping/diarrhea -continue Imodium prn for diarrhea -avoid use of NSAID therapy -trial tca therapy: amitriptyline 10mg po QHS, monitor for serotonin syndrome given patients concurrent use of Duloxetine and Trazodone therapy. #History of SIBO #Chronic abdominal bloating #Chronic Nausea Positive dual hydrogen/methane breath test 08/2023 S/p dual treatment with course of Augmenting with Neomycin without symptom improvement. Initially insurance denied treatment with Xifaxan, however on the letter of denial it stated that it would be approved for treatment of IBS, therefore medication was reordered during last office visit, unfortunately after treatment with Xifaxan her symptoms did not improve. CT scan 03/12/2024 without acute findings. We again discussed that her uncontrolled diabetes may be contributing to ongoing symptoms as these symptoms may be in part due to gastroparesis. -recommend trial low FODMAP diet combined with diabetic diet with stars specialist guidance keeping food/symptom journal -continue Zofran PRN for nausea -continue daily low dose PPI therapy -plan for GES r/o gastroparesis #History of recurrent C-diff infections Patient reported prior c diff infections (Apr 18, 2020 and May 16, 2020). Patient with positive c-diff 11/2023. Treated with fidaxomicin 200mg PO BID for 10 days. Patient reported return of symptoms 12/2023, repeat c-diff was negative. -future consideration for possible FMT if patient + for c-diff #MASLD #Obesity In the setting of obesity and diabetes. LFTs within defined limits Fibroscan 08/2024 with low probability of advanced liver fibrosis. Recommend repeat cmp-patient reports labs done per outside provider not available in care everywhere, request lab records Discussed referral to metabolic clinic for further evaluation/plan of care, patient wishes to deferreferral at this time #CRC surveillance previous diagnosis of lymphocytic colitis on a colonoscopy performed in 2021. However repeat colonoscopy in June 2023 didn't show evidence of MC but showed foci of low grade dysplasia. So repeat chromoendoscopy ws performed and showed only 2 small Tubular adenomas and biopsies were also negative for MC -Repeat colonoscopy for CRC surveillance in 2028 RTC: [facility] SAP HANA DEVELOPER Division of Gastroenterology and Hepatology [facility] TRIMMER documented in this encounter Plan of Treatment Upcoming Encounters Date Type Department Care Team (Late st Contact Info) Description 03/22/2025 8:00 AM SEAT TRIMMER Appointment [facility] [address] [place] [phone] Marlene Das APRN-CNP [address] [place] [phone] 03/22/2025 12:00 PM SEAT TRIMMER Appointment [facility] [address] [place] [phone] Marlene Das APRN-MANAGER STAR [address] [place] [phone] 06/21/2025 10:00 AM SEAT TRIMMER Office Visit [facility] - GI [address] [facility] [place] [phone] Josh Stuart MD [address] [place] [phone] Scheduled Orders Name Type Priority Associated Diagnoses Order Schedule NM Gastric Emptying Imaging Routine Nausea 1 Occurrences starting 03/06/2025 until 03/06/2026 GASTROINTESTINAL PATHOGEN PANEL (GPP) PCR Microbiology Routine Diarrhea, unspecified type Ordered: 03/06/2025 C DIFFICILE GDH AG AND TOXIN A AND B Microbiology Routine Diarrhea, unspecified type Ordered: 03/06/2025 documented as of this encounter Goals Goal Patient Goal Type Associated Problems Recent Progress Patient-Stated? Author Medication Management General On track( 025 10:23 AM CDT) Tiana Webster, JOHNNY Note: Expected end date: ongoing Interventions: Take all medications as prescribed Let your doctor know right away about any changes in your medications Make sure to request a refill of your medication at least one week prior to your last dose documented as of this encounter Visit Diagnoses Diagnosis Irritable bowel syndrome with diarrhea- Primary Irritable bowel syndrome Nausea Nausea alone Nonalcoholic fatty liver disease Other chronic nonalcoholic liver disease Diarrhea, unspecified type documented in this encounter Additional Health Concerns Infection Onset Date Last Indicated Resolved Time CDIFF Under Investigation 03/06/2025 03/06/2025 documented as of this encounter Care Teams Home Health Provider Relationship Specialty Start Date End Date Lorenza Thornton APRN-FERNANDEZ Family Medicine [address] [address] PCP - General 03/06/25 Renard Hui MD Otolaryngology 02/05/11 Conor Russo MD [facility] [address] [address] Orthopedic Surgery 02/05/11 Deana Garza RN Care Manager 08/05/12 documented as of this encounter
--- OUTSIDE RECORDS SUMMARY | 2025-03-06 13:03 | XMS_ITS | Clinical Summary ---
Author Organization [facility] Address [address] [place] [address] Phone Care Team Providers Care Edge Bander Operator Name Role Phone Lorenza Thornton APRN Primary Care Provider [phone] Lenin Porter APRN, LENS POLISHER HAND Unavailable [phone] Allergies No known active allergies Medications traMADol [...] Date Smoking Tobacco: Every Day Cigarettes 0.5 36.3 Started: 11/22/1988 Smokeless Tobacco: Never Tobacco Cessation:Ready [...] Comments Blood Pressure 151/96 06/21/2024 1:57 PM ACTIMIZE ARCHITECT Pulse 92 06/21/2024 1:57 PM ACTIMIZE ARCHITECT Temperature 36 C (96.8 F) 01/12/2019 12:24 PM CDT Respiratory Rate 18 06/21/2024 1:57 PM ACTIMIZE ARCHITECT Oxygen Saturation 96% 06/21/2024 1:57 PM ACTIMIZE ARCHITECT Inhaled Oxygen Concentration - - Weight 89.4 kg (197 lb) 06/21/2024 1:57 PM ACTIMIZE ARCHITECT Height 170.2 cm (5' 7) 06/21/2024 1:57 PM ACTIMIZE ARCHITECT Body Mass Index 30.85 06/21/2024 1:57 PM ACTIMIZE ARCHITECT Plan of Treatment Upcoming Encounters Date Type Department Care Team (Late st Contact Info) Description 06/27/2025 10:00 AM ACTIMIZE ARCHITECT Office Visit [facility] [address] [place] [address] Leinn Porter, KILN LABOURER, LENS POLISHER HAND [address] [place] [address] Health Maintenance Due Date Last Done Comments Hepatitis C Virus (HCV) Screening 1965 Hepatitis B Immunization (1 of 3 - 19+ 3-dose series) 1984 Pneumococcal Immunization (50+ years) (1 of 2 - PCV) 1984 Pap Smear 1986 Cervical Cancer Screening (CCS) 08/25/1995 HPV/Cotest 08/25/1995 Cologuard 2010 Immunochemical Fecal Occult Blood 2010 Mammogram 04/25/2014 04/25/2013 Respiratory Syncytial Virus (RSV) Immunization (Adult) (1 - Risk 50-74 years 1-dose series) 08/25/2015 Zoster Immunization (1 of 2) 08/25/2015 Influenza Immunization (#1) 2024 SARS-COV-2 Immunization (3 - 2024- season) 2024 09/10/2020, 08/20/2020 Td Immunization Every 10 Years (Adults With 1 Tdap) 10/20/2027 10/19/2017, 04/27/2009, 01/28/2009 Colonoscopy 09/03/2028 09/04/2023, 08/25, 07/17/2023, Additional history exists Colorectal Cancer Screening 09/03/2028 DTaP/Tdap/Td Immunization Discontinued 2017, 04/27/2009, 01/28/2009 TdaP [...] Insurance MEDICAID BL[place] Care Teams Edge Bander Operator Relationship Specialty Start Date End Date Lorenza Thornton APRN PCP - General Advanced Practice Nurse 11/18/18 Lenin Porter APRN, LENS POLISHER HAND [address] [place] [address] Nurse Practitioner Advanced Practice Nurse 02/16/23
--- OUTSIDE RECORDS SUMMARY | 2025-03-06 13:03 | XMS_ITS | Clinical Summary ---
Author Organization [facility] Address [address] [place] [address] Care Team Providers Care Medical Information Officer Name Role Phone Renard Hui MD Unavailable [phone] Conor Russo MD Unavailable [phone] Deana Garza RN Unavailable Unavailable Lorenza Thornton MEDICARE SPECIALIST-REGISTERED DENTAL HYGIENIST Primary Care Provider + Source Comments [facility],non-owned Affiliates and Associated Physician Practices is amultiple site organization consisting of ambulatory clinics and hospital sitesin [place], [place], [place] and [place]. This disclosure is being madepursuant to the Care Everywhere program and may not contain all information available regarding this patient. Last updated 18.[facility] Allergies No known active allergies Medications * [...] 06/09/19 13 Active traMADol (ULTRAM) 50 MG tabletIndicati ons:Chronic neck pain Take 1-2 Tabs by mouth every 6 hours as needed. 120 Tab 0 04/11/20 13 Active albuterol HFA (VENTOLIN HFA) 108 (90 BASE) MCG/ACT inhaler Inhale 2 Puffs by mouth every 6 hours as needed. 1 Inhaler 5 05/05/19 15 Active budesonide-for moterol (SYMBICORT) 160-4.5 MCG/ACT inhaler [...] capsule by mouth daily before breakfast Active hyoscyamine (Levsin) 0.125 MG IR [...] by mouth once daily 06/24/19 24 Active OneTouch Verio test strip 1 (one) strip as directed 07/28/19 25 Active Lancets (ONETOUCH DELICA PLUS 33G EXTRA FINE LANCET) 08/22/19 25 Active mometasone (Elocon) 0.1 % cream Apply [...] hours as needed for Nausea/Vomiting 30 tablet 12/13/19 25 Active Trulicity 0.75 MG/0.5ML injection Inject 0.75 (three-quarters) mg subcutaneously every 7 days (once a week) 02/10/20 25 Active Lantus SoloStar pen Inject 10 (ten) Units subcutaneously 2 times daily 02/09/20 25 Active amitriptyline (Elavil) 10 MG tabletIndicati ons:Irritable bowel syndrome with diarrhea Take 1 (one) tablet by mouth at bedtime 90 tablet 03/06/20 25 Active chlorthalidone (HYGROTON) 25 MG tabletIndicati ons:HTN (hypertension) Take 1 Tab by mouth once daily. 90 Tab 0 04/15/20 13 020 Discontin ued(Exclu de AVS) glimepiride (Amaryl) 2 MG tablet Take 1 (one) tablet by mouth daily with breakfast 025 Discontin ued(List Clean-Up) Active Problems Problem Noted Date Diagnosed Date [...] Encounters Date Type Department Care Team Description 03/06/2025 9:00 AM GREEN BUILDING ARCHITECT Office Visit [facility] [address] [facility], [place] [phone] Marlene Das APRN-REGISTERED DENTAL HYGIENIST Irritable bowel syndrome with diarrhea (Primary Dx); Nausea; Nonalcoholic fatty liver disease; Diarrhea, unspecified type 03/06/2025 Travel 03/03/2025 Telephone [facility] - [address] [phone] Armando Eli RN Appointment 12/12/2024 10:30 AM CDT Office Visit [facility] - [address] [phone] Marlene Das, MEDICARE SPECIALIST-FERNANDEZ Irritable bowel syndrome with diarrhea (Primary Dx); Diarrhea, unspecified type; Abdominal pain, unspecified abdominal location; Nausea; Controlled type 2 diabetes mellitus without complication, unspecified whether terminal superintendent insulin use (HCC) 12/12/2024 Travel from Last [...] on file Legal Sex Female 12:14 PM GREEN BUILDING ARCHITECT Gender Identity Not on file Sexual Orientation Not on file Last Filed Vital Signs Vital Sign Reading Time Taken Comments Blood Pressure 143/86 03/06/2025 8:51 AM GREEN BUILDING ARCHITECT Pulse 94 03/06/2025 8:51 AM GREEN BUILDING ARCHITECT Temperature 36.5 C (97.7 F) 09/07/2023 11:20 AM CDT Respiratory Rate 18 09/07/2023 11:20 AM CDT Oxygen Saturation 100% 12/12/2024 10:30 AM CDT Inhaled Oxygen Concentration - - Weight 83.6 kg (184 lb 3.2 oz) 03/06/2025 8:51 A M GREEN BUILDING ARCHITECT Height 170.2 cm (5' 7) 12/12/2024 10:30 AM CDT Body Mass Index 28.85 12/12/2024 10:30 AM CDT Plan of Treatment Upcoming Encounters Date Type Department Care Team (Late st Contact Info) Description 03/22/2025 8:00 AM GREEN BUILDING ARCHITECT Appointment [facility] [place] [phone] Marlene Das, MEDICARE SPECIALIST-REGISTERED DENTAL HYGIENIST [address] [place] [phone] 03/22/2025 12:00 PM GREEN BUILDING ARCHITECT Appointment [facility] [address] [place] [phone] Marlene Das, MEDICARE SPECIALIST-REGISTERED DENTAL HYGIENIST [address] [place] [address] 06/21/2025 10:00 AM GREEN BUILDING ARCHITECT Office Visit [facility] - GI [address] [place] [address], [place] [phone] Josh Stuart MD [address] [place] [phone] Health Maintenance Due Date Last Done Comments [...] MAMMO BILAT SCREENING Routine 04/25/2013 8:18 AM GREEN BUILDING ARCHITECT Other screening mammogram from Last 3 Months [...] and oxygen saturations were monitored continuously. The CF-[id number] was introduced through the anus and advanced to the cecum, identified by appendiceal orifice and ileocecal valve. The colonoscopy was performed without difficulty. The patient tolerated the procedure well. Scope insertion time was 6 minutes. Scope withdrawal time was 41 minutes. The quality of the bowel preparation was evaluated using the BBPS ([place] Bowel Preparation Scale). The total BBPS score equals 9. To enhance insepction, Endocuff distal attachment was used. GI-Genius ([employer] intelligence) was used to assist in polyp detection. [...] entire procedure. Procedure Code(s): --- Professional --- 66221, Colonoscopy, flexible; with removal of tumor(s), polyp(s), or other lesion(s) by snare technique 17300, 59, Colonoscopy, flexible; with biopsy, single or multiple Diagnosis Code(s): --- Professional --- D12.2, Benign neoplasm of ascending colon D12.3, Benign neoplasm of transverse colon (hepatic flexure or splenic flexure) K63.89, Other specified diseases of intestine K52.839, Microscopic colitis, unspecified CPT copyright 2021 [employer] [place] [employer]. All rights reserved. The codes documented in this report are preliminary and upon sales development representative review may be revised to meet current compliance requirements. Susan Kiran MD, 09/04/2023 9:13:12 AM This report has been signed electronically. Note Initiated On: 09/04/2023 7:47 AM Number of Addenda: [address] [address] [facility] 09/04/2023 7:47 AM CDT us Susan Kiran MD GI PROCEDURE ORDERABLES Edited R esult - Final [facility] * (ABNORMAL) GLUCOSE - POINT OF CARE (09/04/2023 7:38 AM CDT) Glucose WB/POC 221(H) 70 - 115 mg/dL 09/04/2023 11:21 AM CDT [facility] Specimen Type Venous 09/04/2023 11:21 AM CDT [facility] Blood BLOOD SPECIMEN / Unknown 09/04/2023 7:38 AM CDT 09/04/2023 11:21 AM CDT us Susan Kiran MD LAB - POINT OF CARE ORDERABLES F inal Result Performing Organization Address City/Special Care Hospital/ZIP Co de Phone Number [facility] [address] [place] [address], [facility] [phone] * MAMMO SCREENING DIGITAL IMAGE BILAT [id number] (04/25/2013 8:18 AM GREEN BUILDING ARCHITECT) Anatomical Region Laterality Modality Breast Bilateral Mammography 04/25/2013 2:43 PM GREEN BUILDING ARCHITECT Narrative 04/25/2013 2:59 PM GREEN BUILDING ARCHITECT DATE: 04/25/2013 DIGITAL BILATERAL SCREENING MAMMOGRAMS WITH [...] if suspicious findings are present clinically. An [employer] [place] [employer]ified [employer] Facility. [facility] Breast [facility] utilizes [employer] as a reminder system to notify patients [...] if suspicious findings are present clinically. An [employer] [place] Certified [employer] Facility. [facility] Breast [facility] utilizes [employer] as a reminder system to notify patients of their next recommended mammograms. Edited by Melissa Mccormick on 04/25/2013 2:54 PM Alonso Núñez MD MAMMO ORDERABLES Final Result from Last 3 Months or Most Recently Relevant to Health Maintenance Additional Health Concerns Infection Onset Date Last Indicated CDIFF Under Investigation 03/06/20252024 Insurance [facility] Care Teams Medical Information Officer Relationship Specialty Start Date End Date Lorenza Thornton APRN-[facility] [place] [address] PCP - General 03/06/25 Renard Hui MD Otolaryngology 02/05/11 Conor Russo MD [address] [place] [address] [address] [place] [address] Orthopedic Surgery 02/05/11 Deana Garza, director of vendor management 08/05/12
--- OUTSIDE RECORDS SUMMARY | 2025-03-06 13:03 | XMS_ITS | Encounter Summary ---
Author Organization [facility] Address [address] [place] [address] Phone Care Team Providers Care History Professor Name Role Phone Lorenza Thornton APRN Primary Care Provider [phone] Lenin Porter APRN, CHEMICAL PLANT OPERATOR Unavailable [phone] Reason for Visit * Reason Comments Medication Refill Encounter Details Date Type Department Care Team (Late st Contact Info) Description 06/08/2023 Refill [facility] [address] [place] [address] Lenin Porter APRN, CHEMICAL PLANT OPERATOR [address] [place] [address] Medication Refill Social History Tobacco Use Types Packs/Day Years Used Date Smoking Tobacco: Every Day Cigarettes 0.5 36.3 Started: 11/22/1988 Smokeless Tobacco: Never Alcohol Use [...] 02/16/23 Office Visit Lenin Porter APRN, CNP [facility] Showing recent visits within past 365 days and meeting all other requirements Future Appointments Date Type Provider Dept 06/23/23 Appointment Lenin Porter APRN, CNP [facility] Showing future appointments within next 90 days and meeting all other requirements HIP DIRECTOR documented in this encounter Plan of Treatment Upcoming Encounters Date Type Department Care Team (Late st Contact Info) Description 06/27/2025 10:00 AM WORSHIP DIRECTOR Office Visit [facility] [address] [place] [address] Lenin Porter APRN, CHEMICAL PLANT OPERATOR [address] [place] [address] documented as of this encounter Visit Diagnoses Diagnosis Urinary frequency Urinary urgency Urgency of urination Urinary incontinence, urge Urge incontinence documented in this encounter Care Teams History Professor Relationship Specialty Start Date End Date Lorenza Thornton APRN PCP - General Advanced Practice Nurse 11/18/18 Lenin Porter APRN, FERNANDEZ [address] [place] [address] Nurse Practitioner Advanced Practice Nurse 02/16/23 documented as of this encounter
--- OUTSIDE RECORDS SUMMARY | 2025-03-06 13:03 | XMS_ITS | Encounter Summary ---
Author Organization [facility] Address [address] [place] [address] Care Team Providers Care Photo Manager Name Role Phone Lorenza Thornton NP Primary Care Provider [phone] Palak Garber Primary Care Provider [phone] Encounter Details Date Type Department Care Team (Late st Contact Info) Description 10/31/2019 Hospital Follow-up Call [facility] [place] [address] Tessy Newsome RN Social History Tobacco Use [...] often do you attend chur ch or orthodoxy services? Never 10/24/2019 Do you belong to any clubs o r organizations such as catholic groups, unions, fraternal or athletic groups, or [...] and heating? Not hard at all 10/24/2019 [facility] [place] [facility] Occupat ional Health - Occupational Stress [...] documented as of this encounter Care Teams Photo Manager Relationship Specialty Start Date End Date Lorenza Thornton NP [address] [place] [address] PCP - General NURSE PRACTITIONER 10/25/19 08/23/22 Palak Garber PA [address] [place] [address] PCP - General PHYSICIAN VEHICLE WASHER 08/24/22 documented as of this encounter
--- OUTSIDE RECORDS SUMMARY | 2025-03-06 13:03 | XMS_ITS | Encounter Summary ---
Author Organization [facility] Address [address] [place] [address] Care Team Providers Care Corporate Job Titles Name Role Phone Renard Hui MD Unavailable [phone] Conor Russo MD Unavailable [phone] Deana Garza RN Unavailable Unavailable Lorenza Thornton HVAC OPERATIONS TECHNICIAN-CONSTRUCTION CODE ADMINISTRATOR Primary Care Provider + Encounter Details Date Type Department Care Team (Latest Contact Info) Description 03/06/2025 Travel Social History Tobacco Use Types Packs/Day Years Used Date Smoking Tobacco: Former Cigarettes 0.5 25 1 997 - 2021 Passive Smoke Exposure: Never Smokeless Tobacco: Never Alcohol Use Standard Drinks/Week Comments No 0 (1 standard drink = 0.6 oz pur e alcohol) Comments No Sex and Gender Information Value Date Recorded Sex Assigned at Not on file Legal Sex Female 12:14 PM ADOPTION WORKER Gender Identity Not on file Sexual Orientation Not on file documented as of this encounter Functional Status * Is person deaf or have serious hearing difficulty? Answer Date of Assessment Author Yes 09/04/2023 9:18 AM DERREKT Julia Richardson RN * Is person blind or have serious difficulty seeing? Answer Date of Assessment Author No 09/04/2023 9:18 AM DERREKT Julia Richardson RN * Does person have serious difficulty walking/climbing stairs? Answer Date of Assessment Author No 09/04/2023 9:18 AM CDT Julia Richardson RN * Does person have difficulty dressing/bathing? Answer Date of Assessment Author No 09/04/2023 9:18 AM DERREKT Julia Richardson RN * Does person have difficulty doing errands alone? Answer Date of Assessment Author No 09/04/2023 9:18 AM DERREKT Julia Richardson RN documented as of this encounter Mental Status * Does person have difficulty concentrating/remembering/making decisions? Answer Entry Date Author No 09/04/2023 9:18 AM DERREKT Julia Richardson RN documented in this encounter Plan of Treatment Upcoming Encounters Date Type Department Care Team (Late st Contact Info) Description 03/22/2025 8:00 AM ADOPTION WORKER Appointment [facility] [address] [place] [phone] Marlene Das, HVAC OPERATIONS TECHNICIAN-CONSTRUCTION CODE ADMINISTRATOR [address] [place] [phone] 03/22/2025 12:00 PM ADOPTION WORKER Appointment [facility] [address] [place] [phone] Marlene Das, HVAC OPERATIONS TECHNICIAN-CONSTRUCTION CODE ADMINISTRATOR [address] [place] [phone] 06/21/2025 10:00 AM ADOPTION WORKER Office Visit [facility] [place] [address] [place] [address], [place] [phone] Josh Stuart MD [address] [place] [phone] documented as of this encounter Goals Goal [...] documented as of this encounter Care Teams Corporate Job Titles Relationship Specialty Start Date End Date Lorenza Thornton APRN-[facility] Family Medicine [address] [address] PCP - General 03/06/25 Renard Hui MD Otolaryngology 02/05/11 Conor Russo MD [address] [facility] [address] [place] [address] Orthopedic Surgery 02/05/11 Deana Garza RN Care Manager 08/05/12 documented as of this encounter
--- OUTSIDE RECORDS SUMMARY | 2025-03-06 13:03 | XMS_ITS | Clinical Summary ---
Author Organization [facility] Address [place] [address] Care Team Providers Care Environmental Designer Name Role Phone Palak Garber Primary Care Provider [phone] Allergies No known active allergies Medications albuterol [...] How often do you attend chur or latter day services? Never 10/24/2019 Do you belong to any clubs o r organizations such as scientologist groups, unions, fraternal or athletic groups, or [...] and heating? Not hard at all 10/24/2019 [facility] [place] of Occupat ional Health - Occupational Stress [...] this topic Medical Devices Implanted Type Area Director Franchise Sales Device Identifier Shelf Expiration Date Model / Serial / Lot Advanix Biliary Implanted:Qty: 1 on 10/25/2019 by Adma Alexander MD at [facility] N/A: Bile Duct 05/09/2021 / REF [id number] / [id number] Insurance MEDICAID Advance Directives * Full Code [...] 8:42 PM 10/28/2019 5:06 PM Care Teams Environmental Designer Relationship Specialty Start Date End Date Palak Garber PA [address] [place] [phone] PCP - General PHYSICIAN HOME HEALTH RN 08/24/22
== END 2025-03-06 12:50 | disposition home or self-care (01) ==
PROVIDERS: PCP Nurse Practitioner Adult Health
DX: R19.7 Diarrhea, unspecified (principal)
CPT/HCPCS: 87507